=== PATIENT | male | born 1975 | race Caucasian/White ===

== ENCOUNTER → 2018-10-02 | Outpatient (CLI) | payer MEDICARE, OTHER ==
[2018-10-02 15:32] VITALS: PULSE 80; RESP 16; TEMP 98
[2018-10-02 16:03] VITALS: BP 134/89
== END | disposition home or self-care (01) ==
LOC: PROCWHC3 14:34
PROVIDERS: ATTEND Family Medicine
DX: D45 Polycythemia vera (principal); Z94.0 Kidney transplant status
CPT/HCPCS: 99195

== ENCOUNTER → 2018-11-14 | Outpatient (CLI) | payer MEDICARE, OTHER ==
--- NOTE | 2018-11-14 18:16 | CT ---
EXAMINATION TYPE: CT brain wo con DATE OF EXAM: 11/14/2018 COMPARISON: None INDICATION: Dizziness and unsteady gait. DLP: 1183 mGycm, Automated exposure control for dose reduction was used. CONTRAST: None CT of the brain is performed utilizing 3 mm thick sections through the posterior fossa and 3 mm thick sections through the remaining calvarium. Study is performed within 24 hours of arrival to the hosp [facility]. No abnormal hyperdensity is present to suggest an acute intracranial hemorrhage. No mass lesion is evident. No acute infarcts are evident. Ventricles and sulci are appropriate for the patient age. Paranasal sinuses and mastoid air cells within the [id number] are clear. IMPRESSIONS: 1. Normal CT Brain
--- NOTE | 2018-11-14 18:18 | CT ---
EXAMINATION TYPE: CT lumbar spine wo con DATE OF EXAM: 11/14/2018 COMPARISON: None HISTORY: Dizziness, unsteady gait and low back pain. CT DLP: 992 mGycm CONTRAST: None TECHNIQUE: CT of the lumbar spine is performed on a spiral scan at 3 mm thick sections. Reconstructed images are performed in the coronal and sagittal planes. FINDINGS: T12-L1: No focal disc herniation or significant disc bulge is evident. No spinal canal stenosis or neural foraminal stenosis is present. L1-L2: No focal disc herniation or significant disc bulge is evident. No spinal canal stenosis or n eural foraminal stenosis is present L2-L3: No focal disc herniation or significant disc bulge is evident. No spinal canal stenosis or n eural foraminal stenosis is present L3-L4: No focal disc herniation or significant disc bulge is evident. No spinal canal stenosis or n eural foraminal stenosis is present L4-L5: Mild disc bulge has anterior thecal sac contact. No AP spinal canal stenosis is evident. Neura l foramen are patent. L5-S1: Mild disc bulge is present with exiting nerve root contact. No contact with the thecal sac is evident. No cysts or canal stenosis or neural foraminal stenosis is present. Vertebral alignment appears normal. Disc heights are preserved. Vertebral body heights are preserved. Alignment IMPRESSION: Mild disc bulging L4-5 L5-S1 of questionable clinical significance.
== END | disposition home or self-care (01) ==
LOC: RADCTMAIN 16:28
PROVIDERS: ATTEND Family Medicine
DX: M54.5 Low back pain (principal); R55 Syncope and collapse; R26.81 Unsteadiness on feet; Z88.8 Allergy status to other drugs, medicaments and biological substances
CPT/HCPCS: 70450; 72131

== ENCOUNTER 2019-03-16 22:34 | Emergency (ER) | payer MEDICARE, OTHER ==
[2019-03-16 22:56] VITALS: BP 117/82; PULSE 92; RESP 18; TEMP 99.1
--- NOTE | 2019-03-17 00:20 | XR ---
EXAM: XR Chest, 2 Views CLINICAL HISTORY: ITS.REASON XR Reason: abdominal pain TECHNIQUE: Frontal and lateral views of the chest. COMPARISON: No relevant prior studies available. FINDINGS: Lungs: Unremarkable. No consolidation. Pleural space: Unremarkable. No pneumothorax. Heart: No suspicious enlargement. Mediastinum: Unremarkable. Bones/joints: No acute fracture. IMPRESSION: No acute findings.
[2019-03-17 00:45] LABS: Basophils # (A) 0.1 k/uL (0-0.2); Basophils % (A) 1 %; Eosinophils # (A) 0.1 k/uL (0-0.7); Eosinophils % (A) 2 %; HCT 43.9 % (39.0-53.0); HGB 14.2 gm/dL (13.0-17.5); Lymphocytes # (A) 1.4 k/uL (1.0-4.8); Lymphocytes % (A) 16 %; MCH 28.9 pg (25.0-35.0); MCHC 32.4 g/dL (31.0-37.0); MCV 89.2 fL (80.0-100.0); Mean Platelet Volume 7.7; Monocytes # (A) 0.8 k/uL (0-1.0); Monocytes % (A) 9 %; Neutrophils # (A) 6.1 k/uL (1.3-7.7); Neutrophils % (A) 71 %; Platelet Count 209 k/uL (150-450); RBC 4.92 m/uL (4.30-5.90); RDW 14.1 % (11.5-15.5); WBC 8.6 k/uL (3.8-10.6)
[2019-03-17 00:53] LABS: ALT 33 U/L (21-72); AST 74 U/L (17-59); Albumin 3.7 g/dL (3.5-5.0); Alkaline Phosphatase 105 U/L (38-126); Anion Gap 8 mmol/L; Blood Urea Nitrogen 14 mg/dL (9-20); Calcium 9.8 mg/dL (8.4-10.2); Carbon Dioxide 24 mmol/L (22-30); Chloride 103 mmol/L (98-107); Glucose 312 mg/dL (74-99); Lipase 58 U/L (23-300); Potassium 4.3 mmol/L (3.5-5.1); Sodium 135 mmol/L (137-145); Total Bilirubin 0.7 mg/dL (0.2-1.3); Total Protein 6.6 g/dL (6.3-8.2)
[2019-03-17 00:58] LABS: Partial Thromboplastin Time 25.6 sec (22.0-30.0); Prothrombin Time 10.3 sec (9.0-12.0)
[2019-03-17 01:25] LABS: Appearance,Urine Clear (Clear); Bilirubin,Urine Negative (Negative); Blood,Urine Negative (Negative); Color,Urine Light Yellow; Glucose,Urine (UA) 4+ (Negative); Ketones,Urine 1+ (Negative); Leukocyte Esterase,Urine Negative (Negative); Nitrite,Urine Negative (Negative); Protein,Urine Negative (Negative); Specific Gravity,Urine 1.023 (1.001-1.035); Urobilinogen,Urine <2.0 mg/dL (<2.0)
[2019-03-17] MEDS ORDERED: INSULIN ASPART (NovoLOG) 100 UNIT/ML VIAL SQ ONE (01:30)
[2019-03-17 02:04] LABS: Glucose,Whole Blood 245 mg/dL (75-99)
--- NOTE | 2019-03-17 02:14 | ED ---
General Adult HPI - General Source: patient, RN notes reviewed, old records reviewed Mode of arrival: ambulatory Limitations: no limitations <Sami Morton - Last Filed: 03/17/19 03:26> <Gardenia Go - Last Filed: 03/17/19 05:36> - General Chief complaint: Fever Stated complaint: Fever Time Seen by Provider: 03/16/19 23:42 - History of Present Illness Initial comments: 43-year-old male patient past medical history of type 1 DM, s/p kidney transplant transplant approximately 7 years ago presents to ED for waxing waning fever 3 days as well as cough. Patient has had some mild nausea as well as 1-2 bouts of diarrhea. Patient denies any chest pain shortness of breath abdominal pain. Patient was placed on azithromycin by primary care provider for pneumonia. Patient denies any other complaints at this time. Patient states that he is seeking evaluation primarily for waxing and waning fevers at home. Systemic: Pt denies fatigue, myalgia, fever/chills, rash. Pt denies weakness, night sweats, weight loss. Neuro: Pt denies headache, visual disturbances, syncope or pre-syncope. HEENT: Pt denies ocular discharge or irritation, otalgia, rhinorrhea, pharyngitis or notable lymphadenopathy. Cardiopulmonary: Pt denies chest pain, SOB, heart palpitations, dyspnea on exertion. Abdominal/GI: Pt denies abdominal pain. : Pt denies dysuria, burning w/ urination, frequency/urgency. Denies new onset urinary or bowel incontinence. MSK: Pt denies myalgia, loss of strength or function in extremities. Neuro: Pt denies new onset weakness, paresthesias. (Sami Morton) - Related Data Home Medications Medication Instructions Recorded Confirmed Insulin Aspart [NovoLOG Flexpen] 75 units SQ DAILY 10/02/18 02/02/19 Insulin Detemir (Levemir) [Levemir] 51 unit SQ DAILY 10/02/18 02/02/19 Mycophenolate Mofetil [Cellcept] 1,000 mg PO BID 10/02/18 02/02/19 Tacrolimus [Prograf] 3 mg PO DAILY 10/02/18 02/02/19 cloNIDine HCL 0.2 mg PO BID 10/02/18 02/02/19 amLODIPine BESYLATE 5 mg PO DAILY 02/02/19 02/02/19 hydrALAZINE HCL 25 mg PO BID 02/02/19 02/02/19 Allergies Allergy/AdvReac Type Severity Reaction Status Date / Time famciclovir [From Famvir] Allergy Hallucinati Verified 03/16/19 22:56 ons Review of Systems ROS Other: All systems not noted in ROS Statement are negative. <SeleneSami Meera - Last Filed: 03/17/19 03:26> ROS Other: All systems not noted in ROS Statement are negative. <Gardenia Go - Last Filed: 03/17/19 05:36> ROS Statement: Those systems with pertinent positive or pertinent negative responses have been documented in the HPI. Past Medical History Past Medical History: Blood Disorder, Diabetes Mellitus, Hypertension, Renal Disease Additional Past Medical History / Comment(s): POLYCTHEMIA WITH THERPEUTIC PHLEBOTOMIES. KIDNEY DISEASE. History of Any Multi-Drug Resistant Organisms: None Reported Additional Past Surgical History / Comment(s): EYES SURGERIES. KIDNEY TRANSPLANT 2011. PARATHYROID "SHAVING". Past Anesthesia/Blood Transfusion Reactions: No Reported Reaction Past Psychological History: No Psychological Hx Reported Smoking Status: Former smoker <Adarsh Mortonpanchito Estes - Last Filed: 03/17/19 03:26> General Exam Limitations: no limitations <Sami Morton Meera - Last Filed: 03/17/19 03:26> - General Exam Comments Initial Comments: Constitutional: NAD, AOX3, Pt has pleasant affect. HEENT: NC/AT, trachea midline, neck supple, no lymphadenopathy. Posterior pharynx non erythematous, without exudates. External ears appear normal, without discharge. Mucous membranes moist. Eyes PERRLA, EOM intact. There is no scleral icterus. No pallor noted. Cardiopulmonary: RRR, no murmurs, rubs or gallops, no JVD noted. Lungs CTAB in anterior and posterior wright. No peripheral edema. Abdominal exam: Abdomen soft and non-distended. Abdomen non-tender to palpation in all 4 quadrants. Bowel sounds active in LLQ. No hepatosplenomegaly. No ecchymosis Neuro: CN II-XII grossly intact. No nuchal rigidity. MSK: No posterior calf tenderness bilaterally, homans sign negative bilaterally. Posterior tibialis and radial pulse +2 bilaterally. Sensation intact in upper and lower extremities. Full active ROM in upper and lower extremities, 5/5 stregnth. (Sami Morton) Course Vital Signs 03/16/19 22:51 Temperature 99.1 F Pulse Rate 92 Respiratory 18 Rate Blood Pressure 117/82 O2 Sat by Pulse 98 Oximetry Medical Decision Making - Lab Data Result diagrams: 03/17/19 00:30 03/17/19 00:30 <Sami Morton - Last Filed: 03/17/19 03:26> - Lab Data Result diagrams: 03/17/19 00:30 03/17/19 00:30 <Gardenia Go - Last Filed: 03/17/19 05:36> - Medical Decision Making 43-year-old male patient past medical history of type 1 DM, s/p kidney transplant transplant approximately 7 years ago presents to ED for waxing waning fever 3 days as well as cough. Patient has had some mild nausea as well as 1-2 bouts of diarrhea. Patient denies any chest pain shortness of breath abdominal pain. Patient was placed on azithromycin by primary care provider for pneumonia. Patient denies any other complaints at this time. Patient states that he is seeking evaluation primarily for waxing and waning fevers at home. Patient fell signs stable, afebrile. Physical exam didn't display acute p athology. Laboratory investigations revealed non-impressive CBC, CMP, UA. Influenza negative. Chest x-ray revealed no acute process. Patient was offered admission for observation although no signs of active infection were detected. Blood cultures were obtained. Patient declined, patient will be discharged. Patient will close outpatient follow-up with primary care provider tomorrow. Patient return to ER immediately if symptoms develop or if patient worsens. Case discussed with Dr. Go. (Sami Morton) I was available for consultation in the emergency department. The history and physical exam were done by the midlevel provider. I was consulted for this patient's care. I reviewed the case with the midlevel provider and based on their presentation of the patient, I agree with the assessment, medical decision making and plan of care as documented. Chart was dictated using [employer] dictation software. Attempts were made to correct any dictation errors however some typographical errors may persist. (Gardenia Go) - Lab Data Lab Results 03/17/19 03/17/19 03/17/19 Range/Units 00:30 00:30 00:30 WBC 8.6 (3.8-10.6) k/uL RBC 4.92 (4.30-5.90) m/uL Hgb 14.2 (13.0-17.5) gm/dL Hct 43.9 (39.0-53.0) % MCV 89.2 (80.0-100.0) fL MCH 28.9 (25.0-35.0) pg MCHC 32.4 (31.0-37.0) g/dL RDW 14.1 (11.5-15.5) % Plt Count 209 (150-450) k/uL Neutrophils % 71 % Lymphocytes % 16 % Monocytes % 9 % Eosinophils % 2 % Basophils % 1 % Neutrophils # 6.1 (1.3-7.7) k/uL Lymphocytes # 1.4 (1.0-4.8) k/uL Monocytes # 0.8 (0-1.0) k/uL Eosinophils # 0.1 (0-0.7) k/uL Basophils # 0.1 (0-0.2) k/uL PT (9.0-12.0) sec INR (<1.2) APTT (22.0-30.0) sec Sodium 135 L (137-145) mmol/L Potassium 4.3 (3.5-5.1) mmol/L Chloride 103 (98-107) mmol/L Carbon Dioxide 24 (22-30) mmol/L Anion Gap 8 mmol/L BUN 14 (9-20) mg/dL Creatinine 1.10 (0.66-1.25) mg/dL Est GFR (CKD-EPI)AfAm >90 (>60 ml/min/1.73 sqM) Est GFR (CKD-EPI)NonAf 81 (>60 ml/min/1.73 sqM) Glucose 312 H (74-99) mg/dL POC Glucose (mg/dL) (75-99) mg/dL POC Glu Supervisor Of Way ID Plasma Lactic Acid Preston 1.9 (0.7-2.0) mmol/L Calcium 9.8 (8.4-10.2) mg/dL Total Bilirubin 0.7 (0.2-1.3) mg/dL AST 74 H (17-59) U/L ALT 33 (21-72) U/L Alkaline Phosphatase 105 (38-126) U/L Total Protein 6.6 (6.3-8.2) g/dL Albumin 3.7 (3.5-5.0) g/dL Lipase 58 (23-300) U/L Urine Color Urine Appearance (Clear) Urine pH (5.0-8.0) Ur Specific [place] (1.001-1.035) Urine Protein (Negative) Urine Glucose (UA) (Negative) Urine Ketones (Negative) Urine Blood (Negative) Urine Nitrite (Negative) Urine Bilirubin (Negative) Urine Urobilinogen (<2.0) mg/dL Ur Leukocyte Esterase (Negative) Influenza Type A RNA (Not Detectd) Influenza Type B (PCR) (Not Detectd) 03/17/19 03/17/19 03/17/19 Range/Units 00:30 00:30 01:20 WBC (3.8-10.6) k/uL RBC (4.30-5.90) m/uL Hgb (13.0-17.5) gm/dL Hct (39.0-53.0) % MCV (80.0-100.0) fL MCH (25.0-35.0) pg MCHC (31.0-37.0) g/dL RDW (11.5-15.5) % Plt Count (150-450) k/uL Neutrophils % % Lymphocytes % % Monocytes % % Eosinophils % % Basophils % % Neutrophils # (1.3-7.7) k/uL Lymphocytes # (1.0-4.8) k/uL Monocytes # (0-1.0) k/uL Eosinophils # (0-0.7) k/uL Basophils # (0-0.2) k/uL PT 10.3 (9.0-12.0) sec INR 1.0 (<1.2) APTT 25.6 (22.0-30.0) sec Sodium (137-145) mmol/L Potassium (3.5-5.1) mmol/L Chloride (98-107) mmol/L Carbon Dioxide (22-30) mmol/L Anion Gap mmol/L BUN (9-20) mg/dL Creatinine (0.66-1.25) mg/dL Est GFR (CKD-EPI)AfAm (>60 ml/min/1.73 sqM) Est GFR (CKD-EPI)NonAf (>60 ml/min/1.73 sqM) Glucose (74-99) mg/dL POC Glucose (mg/dL) (75-99) mg/dL POC Glu Supervisor Of Way ID Plasma Lactic Acid Preston (0.7-2.0) mmol/L Calcium (8.4-10.2) mg/dL Total Bilirubin (0.2-1.3) mg/dL AST (17-59) U/L ALT (21-72) U/L Alkaline Phosphatase (38-126) U/L Total Protein (6.3-8.2) g/dL Albumin (3.5-5.0) g/dL Lipase (23-300) U/L Urine Color Light Yellow Urine Appearance Clear (Clear) Urine pH 6.0 (5.0-8.0) Ur Specific [place] 1.023 (1.001-1.035) Urine Protein Negative (Negative) Urine Glucose (UA) 4+ H (Negative) Urine Ketones 1+ H (Negative) Urine Blood Negative (Negative) Urine Nitrite Negative (Negative) Urine Bilirubin Negative (Negative) Urine Urobilinogen <2.0 (<2.0) mg/dL Ur Leukocyte Esterase Negative (Negative) Influenza Type A RNA Not Detected (Not Detectd) Influenza Type B (PCR) Not Detected (Not Detectd) 03/17/19 Range/Units 02:02 WBC (3.8-10.6) k/uL RBC (4.30-5.90) m/uL Hgb (13.0-17.5) gm/dL Hct (39.0-53.0) % MCV (80.0-100.0) fL MCH (25.0-35.0) pg MCHC (31.0-37.0) g/dL RDW (11.5-15.5) % Plt Count (150-450) k/uL Neutrophils % % Lymphocytes % % Monocytes % % Eosinophils % % Basophils % % Neutrophils # (1.3-7.7) k/uL Lymphocytes # (1.0-4.8) k/uL Monocytes # (0-1.0) k/uL Eosinophils # (0-0.7) k/uL Basophils # (0-0.2) k/uL PT (9.0-12.0) sec INR (<1.2) APTT (22.0-30.0) sec Sodium (137-145) mmol/L Potassium (3.5-5.1) mmol/L Chloride (98-107) mmol/L Carbon Dioxide (22-30) mmol/L Anion Gap mmol/L BUN (9-20) mg/dL Creatinine (0.66-1.25) mg/dL Est GFR (CKD-EPI)AfAm (>60 ml/min/1.73 sqM) Est GFR (CKD-EPI)NonAf (>60 ml/min/1.73 sqM) Glucose (74-99) mg/dL POC Glucose (mg/dL) 245 H (75-99) mg/dL POC Glu Supervisor Of Way ID Rashawn Nickerson Plasma Lactic Acid Preston (0.7-2.0) mmol/L Calcium (8.4-10.2) mg/dL Total Bilirubin (0.2-1.3) mg/dL AST (17-59) U/L ALT (21-72) U/L Alkaline Phosphatase (38-126) U/L Total Protein (6.3-8.2) g/dL Albumin (3.5-5.0) g/dL Lipase (23-300) U/L Urine Color Urine Appearance (Clear) Urine pH (5.0-8.0) Ur Specific [place] (1.001-1.035) Urine Protein (Negative) Urine Glucose (UA) (Negative) Urine Ketones (Negative) Urine Blood (Negative) Urine Nitrite (Negative) Urine Bilirubin (Negative) Urine Urobilinogen (<2.0) mg/dL Ur Leukocyte Esterase (Negative) Influenza Type A RNA (Not Detectd) Influenza Type B (PCR) (Not Detectd) Disposition Is patient prescribed a controlled substance at d/c from ED?: No <Sami Morton - Last Filed: 03/17/19 03:26> <Gardenia Go - Last Filed: 03/17/19 05:36> Clinical Impression: Viral syndrome Disposition: HOME SELF-CARE Condition: Stable Instructions (If sedation given, give patient instructions): Viral Syndrome (ED) Additional Instructions: Patient to adhere to previously discussed treatment plan and will take medication(s) as directed. Patient to follow up with PCP in 1-2 days. Patient to return to ED if symptoms do not improve. Follow-up with primary care provider tomorrow. Return to ER if condition worsens. Referrals: Bhanu Carranza Jr, [Primary Care Provider] - 1-2 days
== END 2019-03-17 02:20 | disposition home or self-care (01) ==
LOC: EC 22:34
DX: B34.9 Viral infection, unspecified (principal); E10.9 Type 1 diabetes mellitus without complications; I10 Essential (primary) hypertension; Z87.891 Personal history of nicotine dependence; Z79.4 Long term (current) use of insulin; Z79.899 Other long term (current) drug therapy; Z88.3 Allergy status to other anti-infective agents; Z94.0 Kidney transplant status; Z53.8 Procedure and treatment not carried out for other reasons
CPT/HCPCS: 36415; 71046; 80053; 81003; 83605; 83690; 85025; 85610; 85730; 87040; 87502; 99284

== ENCOUNTER 2020-03-22 13:01 | Inpatient (IN) | payer MEDICARE, OTHER ==
[2020-03-22] MEDS ORDERED: METOCLOPRAMIDE 5 MG/ML 2 ML VIAL IM STA (13:16)
[2020-03-22 13:24] LABS: Glucose,Whole Blood 505 mg/dL (75-99)
[2020-03-22] MEDS ORDERED: PANTOPRAZOLE 40 MG/10 ML VIAL IVP STA ×2 (13:26→13:49)
[2020-03-22] MEDS ORDERED: SODIUM CHLORIDE 0.9% 1,000 ML IV ONE (13:26)
--- NOTE | 2020-03-22 13:30 | ED ---
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 patient states that he has had elevated glucose, nausea, vomiting. Patient states this began this morning. Patient states he was only had chest pain since vomiting, denies any prior to onset of symptoms of vomiting. Very mild SOB-per patient. Patient states vomit is dark brown. Denies rectal bleeding or dark stools. Patient states that he underwent dialysis yesterday however normally has little urine output. Patient denies any fever or cough. Patient denies any abdominal pain. Patient denies jaw, back or arm pain. Admit to generalized weakness. Patient denies any additional complaints. Upon arrival patient actively vomiting dark brown vomit. (Shayla Shetty) - Related Data Home Medications Medication Instructions Recorded Confirmed Insulin Aspart [NovoLOG Flexpen] 12 units SQ AC-TID 10/02/18 03/22/20 Insulin Detemir (Levemir) [Levemir] 20 unit SQ HS 10/02/18 03/22/20 amLODIPine BESYLATE 5 mg PO DAILY 02/02/19 03/22/20 hydrALAZINE HCL 25 mg PO TID 02/02/19 03/22/20 Metoprolol Succinate [Toprol XL] 25 mg PO DAILY 03/22/20 03/22/20 cloNIDine HCL [Catapres] 0.6 mg PO TID 03/22/20 03/22/20 Allergies Allergy/AdvReac Type Severity Reaction Status Date / Time famciclovir [From Famvir] Allergy Hallucinati Verified 03/22/20 13:11 ons Review of Systems ROS Other: All systems not noted in ROS Statement are negative. <Doug Tomlin - Last Filed: 05/16/20 15:58> ROS Other: All systems not noted in ROS Statement are negative. <Shayla Shetty - Last Filed: 03/22/20 16:17> ROS Statement: Those systems with pertinent positive or pertinent negative responses have been documented in the HPI. Past Medical History Past Medical History: Blood Disorder, Diabetes Mellitus, Hypertension, Renal Disease Additional Past Medical History / Comment(s): POLYCTHEMIA WITH THERPEUTIC PHLEB OTOMIES. KIDNEY DISEASE. dialysis History of Any Multi-Drug Resistant Organisms: None Reported Additional Past Surgical History / Comment(s): EYES SURGERIES. KIDNEY TRANSPLANT 2012. PARATHYROID "SHAVING". open heart surgey Past Anesthesia/Blood Transfusion Reactions: No Reported Reaction Past Psychological History: No Psychological Hx Reported Smoking Status: Current every day smoker Past Alcohol Use History: None Reported, Occasional Past Drug Use History: None Reported <Shayla Shetty - Last Filed: 03/22/20 16:17> General Exam Limitations: no limitations <Shayla Shetty - Last Filed: 03/22/20 16:17> - General Exam Comments Initial Comments: General: The patient is awake and alert, actively vomiting Eye: +3 mm pupils are equal, round and reactive to light, extra-ocular movements are intact. No nystagmus. There is normal conjunctiva bilaterally. No signs of icterus. Ears, nose, mouth and throat: There are moist mucous membranes and no oral lesions. Neck: The neck is supple, there is no tenderness or JVD. Cardiovascular: There is a regular rate and rhythm. No murmur, rub or gallop is appreciated. Respiratory: Mild diminished lung sounds. respirations are non-labored, breath sounds are equal. No wheezes, stridor, rhonchi. Gastrointestinal: Soft, non-distended, non-tender abdomen without masses or organomegaly noted. There is no rebound or guarding present. Musculoskeletal: Normal ROM, no tenderness. Strength 5/5. Sensation intact. Radial pulses equal bilaterally 2+. Neurological: A&O x 3. CN II-XII intact grossly, There are no obvious motor or sensory deficits. Coordination appears grossly intact. Speech is normal. Skin: Skin is warm and dry and no rashes or lesions are noted. Mild LE swelling, no pitting edema. Psychiatric: Cooperative, appropriate mood & affect, normal judgment. (Shayla Shetty) Course <Doug Tomlin - Last Filed: 03/22/20 15:58> Vital Signs 03/22/20 03/22/20 03/22/20 13:05 13:46 14:54 Temperature 98.0 F Pulse Rate 113 H 115 H 112 H Respiratory 40 H 38 H 40 H Rate Blood Pressure 144/76 118/63 129/65 O2 Sat by Pulse 95 100 99 Oximetry 03/22/20 16:00 Temperature 98.6 F Pulse Rate 112 H Respiratory 28 H Rate Blood Pressure 137/66 O2 Sat by Pulse 98 Oximetry - Reevaluation(s) Reevaluation #1: 03/22/20 15:58 PA supervision: I personally evaluate this patient in case the patient will be admitted with DKA as well as elevated lactic acid which is likely secondary to the DKA is a slight elevation of troponin. He did have chest pain after vomiting. He also had some emesis after vomiting. His last dialysis was yesterday. I did discuss case with Dr. Mcguire as well as Dr. Aguilar. Patient will be admitted consultation to nephrology. (Doug Tomlin) Medical Decision Making - Lab Data Result diagrams: 03/22/20 14:22 03/22/20 14:22 <Doug Tomlin - Last Filed: 03/22/20 15:58> - Lab Data Result diagrams: 03/22/20 14:22 03/22/20 14:22 <Shayla Shetty - Last Filed: 03/22/20 16:17> - Medical Decision Making 44-year-old male presenting today for chief complaint of vomiting nausea. Patient is a diabetic-type 1. Patient is found to have significant anion gap elevation acetone positive with suspected diabetic ketoacidosis. Lactic acid also elevated as well as creatinine which is consistent with patient's history of kidney failure, last dialysis yesterday. Mild electrolytes derangements. Patient states he had some chest pain while vomiting, however subsided after reglan. Patient's vomited appear coffee ground in appearance aspirin was held with concern for upper GI bleed as i suspect vomiting as cause of CP as complete resolved with control of symptom. Patient was given 80 mg of Protonix. Noted on CXR was a right sided pleural effusion that appears loculated, cannot r/o infectious cause, patient initiated on broad spectrum antibiotics. Patient given 1500ml of fluids-less aggressive than preferred given patient current condition however at high risk with recent surgical procedure and no urine output for fluid overload--will hydrate at tolerated. Patient troponin elevated, could be related to decreased excretion will trend. Patient has serious co-morbidities and current medication condition and will be admitted to the ICU. 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 (Shayla Shetty) - Lab Data Lab Results 03/22/20 03/22/20 03/22/20 Range/Units 13:22 13:39 14:22 WBC 9.7 (3.8-10.6) k/uL RBC 3.73 L (4.30-5.90) m/uL Hgb 11.0 L (13.0-17.5) gm/dL Hct 36.9 L (39.0-53.0) % MCV 98.9 (80.0-100.0) fL MCH 29.5 (25.0-35.0) pg MCHC 29.8 L (31.0-37.0) g/dL RDW 15.2 (11.5-15.5) % Plt Count 267 (150-450) k/uL Neutrophils % 86 % Lymphocytes % 6 % Monocytes % 7 % Eosinophils % 0 % Basophils % 0 % Neutrophils # 8.4 H (1.3-7.7) k/uL Lymphocytes # 0.6 L (1.0-4.8) k/uL Monocytes # 0.6 (0-1.0) k/uL Eosinophils # 0.0 (0-0.7) k/uL Basophils # 0.0 (0-0.2) k/uL Hypochromasia Marked Macrocytosis Slight PT (9.0-12.0) sec INR (<1.2) APTT (22.0-30.0) sec Sodium (137-145) mmol/L Potassium (3.5-5.1) mmol/L Chloride (98-107) mmol/L Carbon Dioxide (22-30) mmol/L Anion Gap mmol/L BUN (9-20) mg/dL Creatinine (0.66-1.25) mg/dL Est GFR (CKD-EPI)AfAm (>60 ml/min/1.73 sqM) Est GFR (CKD-EPI)NonAf (>60 ml/min/1.73 sqM) Glucose (74-99) mg/dL POC Glucose (mg/dL) 505 H (75-99) mg/dL POC Glu Car Sales Consultant ID Oneyda Neumann Plasma Lactic Acid Preston (0.7-2.0) mmol/L Calcium (8.4-10.2) mg/dL Magnesium (1.6-2.3) mg/dL Total Bilirubin (0.2-1.3) mg/dL AST (17-59) U/L ALT (4-49) U/L Alkaline Phosphatase (38-126) U/L Ammonia (<30) umol/L Troponin I (0.000-0.034) ng/mL Total Protein (6.3-8.2) g/dL Albumin (3.5-5.0) g/dL Amylase (30-110) U/L Lipase (23-300) U/L TSH (0.465-4.680) mIU/L Free T4 (0.78-2.19) ng/dL Gastric Occult Blood Positive (Negative) Acetone, Qual (Negative) 03/22/20 03/22/20 03/22/20 Range/Units 14:22 14:22 14:22 WBC (3.8-10.6) k/uL RBC (4.30-5.90) m/uL Hgb (13.0-17.5) gm/dL Hct (39.0-53.0) % MCV (80.0-100.0) fL MCH (25.0-35.0) pg MCHC (31.0-37.0) g/dL RDW (11.5-15.5) % Plt Count (150-450) k/uL Neutrophils % % Lymphocytes % % Monocytes % % Eosinophils % % Basophils % % Neutrophils # (1.3-7.7) k/uL Lymphocytes # (1.0-4.8) k/uL Monocytes # (0-1.0) k/uL Eosinophils # (0-0.7) k/uL Basophils # (0-0.2) k/uL Hypochromasia Macrocytosis PT 12.1 H (9.0-12.0) sec INR 1.2 H (<1.2) APTT 24.8 (22.0-30.0) sec Sodium 131 L (137-145) mmol/L Potassium 4.8 (3.5-5.1) mmol/L Chloride 91 L (98-107) mmol/L Carbon Dioxide 12 L (22-30) mmol/L Anion Gap 28 mmol/L BUN 20 (9-20) mg/dL Creatinine 5.75 H (0.66-1.25) mg/dL Est GFR (CKD-EPI)AfAm 13 (>60 ml/min/1.73 sqM) Est GFR (CKD-EPI)NonAf 11 (>60 ml/min/1.73 sqM) Glucose 579 H* (74-99) mg/dL POC Glucose (mg/dL) (75-99) mg/dL POC Glu Car Sales Consultant ID Plasma Lactic Acid Preston 5.8 H* (0.7-2.0) mmol/L Calcium 8.4 (8.4-10.2) mg/dL Magnesium 1.8 (1.6-2.3) mg/dL Total Bilirubin 0.6 (0.2-1.3) mg/dL AST 70 H (17-59) U/L ALT 22 (4-49) U/L Alkaline Phosphatase 124 (38-126) U/L Ammonia <9 (<30) umol/L Troponin I (0.000-0.034) ng/mL Total Protein 6.7 (6.3-8.2) g/dL Albumin 3.6 (3.5-5.0) g/dL Amylase 88 (30-110) U/L Lipase 140 (23-300) U/L TSH 6.860 H (0.465-4.680) mIU/L Free T4 2.56 H (0.78-2.19) ng/dL Gastric Occult Blood (Negative) Acetone, Qual Positive (Negative) 03/22/20 03/22/20 Range/Units 14:22 15:50 WBC (3.8-10.6) k/uL RBC (4.30-5.90) m/uL Hgb (13.0-17.5) gm/dL Hct (39.0-53.0) % MCV (80.0-100.0) fL MCH (25.0-35.0) pg MCHC (31.0-37.0) g/dL RDW (11.5-15.5) % Plt Count (150-450) k/uL Neutrophils % % Lymphocytes % % Monocytes % % Eosinophils % % Basophils % % Neutrophils # (1.3-7.7) k/uL Lymphocytes # (1.0-4.8) k/uL Monocytes # (0-1.0) k/uL Eosinophils # (0-0.7) k/uL Basophils # (0-0.2) k/uL Hypochromasia Macrocytosis PT (9.0-12.0) sec INR (<1.2) APTT (22.0-30.0) sec Sodium (137-145) mmol/L Potassium (3.5-5.1) mmol/L Chloride (98-107) mmol/L Carbon Dioxide (22-30) mmol/L Anion Gap mmol/L BUN (9-20) mg/dL Creatinine (0.66-1.25) mg/dL Est GFR (CKD-EPI)AfAm (>60 ml/min/1.73 sqM) Est GFR (CKD-EPI)NonAf (>60 ml/min/1.73 sqM) Glucose (74-99) mg/dL POC Glucose (mg/dL) >600 H (75-99) mg/dL POC Glu Car Sales Consultant ID Bowling, Mayela Plasma Lactic Acid Preston (0.7-2.0) mmol/L Calcium (8.4-10.2) mg/dL Magnesium (1.6-2.3) mg/dL Total Bilirubin (0.2-1.3) mg/dL AST (17-59) U/L ALT (4-49) U/L Alkaline Phosphatase (38-126) U/L Ammonia (<30) umol/L Troponin I 0.077 H* (0.000-0.034) ng/mL Total Protein (6.3-8.2) g/dL Albumin (3.5-5.0) g/dL Amylase (30-110) U/L Lipase (23-300) U/L TSH (0.465-4.680) mIU/L Free T4 (0.78-2.19) ng/dL Gastric Occult Blood (Negative) Acetone, Qual (Negative) Disposition <Doug Tomlin - Last Filed: 03/22/20 15:58> Is patient prescribed a controlled substance at d/c from ED?: No Time of Disposition: 15:56 Decision to Admit Reason: Admit from EC Decision Date: 03/22/20 Decision Time: 15:56 <Shayla Shetty - Last Filed: 03/22/20 16:17> Clinical Impression: DKA (diabetic ketoacidoses), Renal failure, chronic, Bloody vomitus, Nausea, Vomiting, Lactic acidosis, Pleural effusion, right, Leukocytosis, Elevated serum creatinine Disposition: ADMITTED IP TO THIS HOSP Condition: Poor Referrals: Bhanu Carranza Jr, [Primary Care Provider] - 1-2 days
--- NOTE | 2020-03-22 14:16 | XR ---
EXAMINATION TYPE: XR chest 2V DATE OF EXAM: 03/22/2020 HISTORY: Chest Pain. REFERENCE: Previous study dated 03/17/2019. FINDINGS: There is a large-bore, double-lumen catheter in place via a left internal jugular approach. Its tip is in the superior vena cava. There is been a midline sternotomy. There is a moderate pleural effusion on the right. This appears loculated. The heart is mildly promin ent. There is vascular congestion and mild edema. IMPRESSION: 1. MILD CARDIOMEGALY. 2. MODERATE RIGHT PLEURAL EFFUSION WHICH MAY BE LOCULATED. 3. MILD CHANGES OF CONGESTIVE HEART FAILURE.
[2020-03-22] MEDS ORDERED: PIPERACILLIN-TAZOBACTAM 3.375 GM in SODIUM CHLORIDE 0.9% 100 ML IVPB STA (14:26)
[2020-03-22] MEDS ORDERED: LORazepam 2 MG/ML INJ IV STA (14:49)
[2020-03-22 14:51] LABS: Basophils % (A) 0 %; Eosinophils % (A) 0 %; HCT 36.9 % (39.0-53.0); Hypochromasia Marked; Lymphocytes # (A) 0.6 k/uL (1.0-4.8); Lymphocytes % (A) 6 %; MCH 29.5 pg (25.0-35.0); MCHC 29.8 g/dL (31.0-37.0); MCV 98.9 fL (80.0-100.0); Macrocytosis Slight; Mean Platelet Volume 8.7; Monocytes # (A) 0.6 k/uL (0-1.0); Monocytes % (A) 7 %; Neutrophils # (A) 8.4 k/uL (1.3-7.7); Neutrophils % (A) 86 %; Platelet Count 267 k/uL (150-450); RBC 3.73 m/uL (4.30-5.90); RDW 15.2 % (11.5-15.5); WBC 9.7 k/uL (3.8-10.6)
[2020-03-22] MEDS ORDERED: SODIUM CHLORIDE 0.9% 500 ML 500 ML IV ONE (14:58)
[2020-03-22 15:00] LABS: INR 1.2 (<1.2); Partial Thromboplastin Time 24.8 sec (22.0-30.0); Prothrombin Time 12.1 sec (9.0-12.0)
[2020-03-22 15:01] LABS: AST 70 U/L (17-59); African American GFR (CKD) 13 (>60 ml/min/1.73 sqM); Albumin 3.6 g/dL (3.5-5.0); Alkaline Phosphatase 124 U/L (38-126); Amylase 88 U/L (30-110); Anion Gap 28 mmol/L; Blood Urea Nitrogen 20 mg/dL (9-20); Calcium 8.4 mg/dL (8.4-10.2); Carbon Dioxide 12 mmol/L (22-30); Chloride 91 mmol/L (98-107); Magnesium 1.8 mg/dL (1.6-2.3); Non-African American GFR(CKD) 11 (>60 ml/min/1.73 sqM); Potassium 4.8 mmol/L (3.5-5.1); Sodium 131 mmol/L (137-145); Total Bilirubin 0.6 mg/dL (0.2-1.3); Total Protein 6.7 g/dL (6.3-8.2)
[2020-03-22 15:08] LABS: ALT 22 U/L (4-49)
[2020-03-22 15:12] LABS: Lactic Acid, Venous 5.8 mmol/L (0.7-2.0)
[2020-03-22 15:13] LABS: Glucose 579 mg/dL (74-99)
[2020-03-22] MEDS ORDERED: INSULIN REGULAR BOLUS (FROM DRIP BAG) IV ONE (15:34)
[2020-03-22] MEDS ORDERED: NITROGLYCERIN SL TABS 0.4 MG TAB SUBLINGUAL PRN (15:46)
[2020-03-22 15:51] LABS: Glucose,Whole Blood >600 mg/dL (75-99)
[2020-03-22 15:58] LABS: T4, Free (Free Thyroxine) 2.56 ng/dL (0.78-2.19)
[2020-03-22] MEDS: INSULIN REGULAR 100 UNIT in SODIUM CHLORIDE 0.9% 100 ML IV SCH ×2 (16:03→22:18)
[2020-03-22] MEDS: SODIUM CHLORIDE 0.9% 1,000 ML IV SCH (16:06)
[2020-03-22 17:23] LABS: Glucose,Whole Blood 545 mg/dL (75-99)
[2020-03-22 17:52] LABS: Glucose,Whole Blood 511 mg/dL (75-99)
[2020-03-22 19:05] LABS: Glucose,Whole Blood 458 mg/dL (75-99)
[2020-03-22 19:22] LABS: Potassium 4.2 mmol/L (3.5-5.1)
[2020-03-22 19:23] LABS: Phosphorus 3.8 mg/dL (2.5-4.5)
[2020-03-22 20:06] LABS: Glucose,Whole Blood 353 mg/dL (75-99)
[2020-03-22 21:04] LABS: Glucose,Whole Blood 303 mg/dL (75-99)
[2020-03-22 21:56] LABS: Glucose,Whole Blood 274 mg/dL (75-99)
[2020-03-22] MEDS: D5-0.45% NACL WITH KCL 20MEQ/L 1,000 ML IV SCH ×2 (22:12→22:57)
[2020-03-22 23:00] LABS: Glucose,Whole Blood 195 mg/dL (75-99)
[2020-03-22 23:18] LABS: Calcium 8.2 mg/dL (8.4-10.2); Phosphorus 3.2 mg/dL (2.5-4.5); Potassium 3.8 mmol/L (3.5-5.1)
[2020-03-23 00:11] LABS: Glucose,Whole Blood 151 mg/dL (75-99)
[2020-03-23 01:08] LABS: Glucose,Whole Blood 114 mg/dL (75-99)
[2020-03-23 02:18] LABS: Glucose,Whole Blood 87 mg/dL (75-99)
[2020-03-23 02:43] LABS: Glucose,Whole Blood 69 mg/dL (75-99)
[2020-03-23 03:18] LABS: Glucose,Whole Blood 95 mg/dL (75-99)
[2020-03-23] MEDS: SODIUM CHLORIDE 0.9% 1,000 ML IV SCH ×2 (03:19→15:42)
[2020-03-23 03:23] LABS: Calcium 8.4 mg/dL (8.4-10.2); Phosphorus 3.7 mg/dL (2.5-4.5); Potassium 4.1 mmol/L (3.5-5.1)
[2020-03-23 03:30] LABS: HCT 34.1 % (39.0-53.0); HGB 10.3 gm/dL (13.0-17.5); Hypochromasia Slight; MCH 28.3 pg (25.0-35.0); MCHC 30.1 g/dL (31.0-37.0); Mean Platelet Volume 8.9; Platelet Count 235 k/uL (150-450); RBC 3.62 m/uL (4.30-5.90); RDW 15.6 % (11.5-15.5); WBC 9.1 k/uL (3.8-10.6)
[2020-03-23 04:00] LABS: Glucose,Whole Blood 114 mg/dL (75-99)
[2020-03-23] MEDS: D5-0.45% NACL WITH KCL 20MEQ/L 1,000 ML IV SCH (04:01)
[2020-03-23 04:58] LABS: Glucose,Whole Blood 114 mg/dL (75-99)
[2020-03-23 05:53] LABS: Glucose,Whole Blood 105 mg/dL (75-99)
[2020-03-23 06:54] LABS: Glucose,Whole Blood 123 mg/dL (75-99)
[2020-03-23 08:39] VITALS: BMI 31.3
[2020-03-23 08:51] LABS: Calcium 8.4 mg/dL (8.4-10.2); Phosphorus 4.3 mg/dL (2.5-4.5); Potassium 4.4 mmol/L (3.5-5.1)
[2020-03-23] MEDS: hydrALAZINE HCL 25 MG TAB PO SCH ×3 (08:58→22:09)
[2020-03-23] MEDS: ASPIRIN 325 MG TAB PO SCH (08:58)
[2020-03-23] MEDS: amLODIPine 5 MG TAB PO SCH (08:59)
[2020-03-23] MEDS: METOPROLOL SUCCINATE (ER) 25 MG TAB.ER.24H PO SCH (08:59)
[2020-03-23] MEDS: cloNIDine HCL 0.2 MG TAB PO SCH ×3 (09:32→22:09)
--- NOTE | 2020-03-23 10:26 | US ---
EXAMINATION TYPE: US chest DATE OF EXAM: 03/23/2020 COMPARISON: NONE CLINICAL HISTORY: Markings for thoracentesis by pulmonary staff. Pleural effusion TECHNIQUE: Targeted ultrasound of the posterior lower bilateral hemithoraces EXAM MEASUREMENTS: Right Pleural Effusion pocket size: 10.4 cm Right skin surface to fluid distance: 1.7 cm Right side marked for possible thoracentesis outside the dept. Pulmonologists are able to review the images in the patient?s EMR. IMPRESSIONS: BILATERAL PLEURAL EFFUSIONS, GREATER ON THE RIGHT THAN THE LEFT.
--- NOTE | 2020-03-23 11:55 | P.CNPUL ---
History of Present Illness Consult date: 03/23/20 Chief complaint: DKA History of present illness: This is a 44-year-old male patient, was undergone a recent coronary bypass surgery and [facility] who also has type 1 diabetes mellitus with chronic complications of diabetes mellitus including nephropathy resulting into renal failure. 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 The patient is being dialyzed through a permacath in the left IJ. The patient does not have a fistula autograph at this point in time. Mother the patient is also interested in another transportation and he is currently being investigated for [facility]. He is currently on tacrolimus 7 mg on a daily basis. He has hypertension as and other comorbid condition. He denies having any CAD or congestion heart failure. The patient was having emesis yesterday and since he was started on hemodialysis, he was having episodic emesis specially after completing a dialysis session. Yesterday, his emesis was quite extensive and he was found to have elevated blood sugars. No abdominal pain. No shortness of breath. No chest pain. He did vomit dark brownish material. Denies having any bright red blood per rectum or melanotic stool. The patient has no altered mentation. He was complaining of generalized weakness. He came in to the emergency where he was found to have anion gap metabolic acidosis with positive ketones. His BUN was 20 with a creatinine of 5.7. Serum bicarbonate was down to 12. Blood sugar was 579. He was treated with an insulin drip and his anion gap is closed. His mentation is fully back to normal. He is awake and alert and following commands and answering questions appropriately. No fever. No chills. No active GI complaints at this point in time. The patient is cu rrently in intensive care unit. Review of Systems Constitutional: Reports lethargy, Reports weakness Eyes: bilateral blurred vision, bilateral decreased vision, denies bulging eye Ears: deny: decreased hearing, ear discharge, earache, tinnitus Ears, nose, mouth and throat: Denies headache, Denies sore throat Breasts: absent: as per HPI, gynecomastia Cardiovascular: Reports decreased exercise tolerance, Reports dyspnea on exertion Respiratory: Reports dyspnea Gastrointestinal: Reports nausea, Reports vomiting Genitourinary: Reports as per HPI Musculoskeletal: Reports as per HPI, Reports muscle weakness Musculoskeletal: absent: ankle pain, ankle stiffness, ankle swelling Integumentary: Reports as per HPI Neurological: Reports as per HPI Psychiatric: Reports as per HPI Endocrine: Reports high blood sugars Hematologic/Lymphatic: Reports as per HPI Past Medical History Past Medical History: Blood Disorder, Diabetes Mellitus, Hypertension, Renal Disease Additional Past Medical History / Comment(s): Coronary artery disease, recent bypass surgery, Type 1 diabetes mellitus, history of polycythemia rubra of the r ight requiring therapeutic phlebotomies, end-stage renal disease currently on hemodialysis and the patient has undergone previous kidney chest palpitation with subsequent rejection, dialysis dependent renal failure, hypertension, history of hyperparathyroidism History of Any Multi-Drug Resistant Organisms: None Reported Past Surgical History: Coronary Bypass/CABG Additional Past Surgical History / Comment(s): Coronary artery bypass surgery, history of kidney transplantation 2011, history of eye surgeries, parathyroidect jose, insertion of a permacath Past Anesthesia/Blood Transfusion Reactions: No Reported Reaction Past Psychological History: No Psychological Hx Reported Smoking Status: Current some day smoker Past Alcohol Use History: None Reported, Occasional Past Drug Use History: Marijuana Medications and Allergies Home Medications Medication Instructions Recorded Confirmed Type Insulin Aspart [NovoLOG Flexpen] 12 units SQ AC-TID 10/02/18 03/22/20 History Insulin Detemir (Levemir) [Levemir] 20 unit SQ HS 10/02/18 03/22/20 History amLODIPine BESYLATE 5 mg PO DAILY 02/02/19 03/22/20 History hydrALAZINE HCL 25 mg PO TID 02/02/19 03/22/20 History Metoprolol Succinate [Toprol XL] 25 mg PO DAILY 03/22/20 03/22/20 History cloNIDine HCL [Catapres] 0.6 mg PO TID 03/22/20 03/22/20 History Allergies Allergy/AdvReac Type Severity Reaction Status Date / Time famciclovir [From Famvir] Allergy Hallucinati Verified 03/22/20 13:11 ons Physical Exam Vitals: Vital Signs Temp Pulse Resp BP Pulse Ox 03/23/20 09:00 97 21 174/132 95 03/23/20 08:00 98.7 F 93 25 H 155/101 95 03/23/20 07:00 92 10 L 157/106 95 03/23/20 06:00 90 15 147/98 95 05/17/20 05:00 96 15 136/95 95 03/23/20 04:00 98.8 F 86 14 133/81 95 03/23/20 03:00 89 14 136/85 94 L 03/23/20 02:00 92 14 136/84 95 03/23/20 01:00 88 17 118/72 95 03/23/20 00:10 85 13 96 03/23/20 00:00 98.8 F 85 19 121/77 95 03/22/20 23:00 80 14 125/77 96 03/22/20 22:00 82 15 131/78 95 03/22/20 21:00 81 19 131/81 97 03/22/20 20:30 84 18 96 03/22/20 20:00 98.8 F 85 12 139/75 96 03/22/20 19:30 86 18 96 03/22/20 19:00 95 18 133/78 96 03/22/20 18:30 89 13 95 03/22/20 18:10 90 96 03/22/20 18:00 99.1 F 92 16 133/78 95 03/22/20 17:58 96 03/22/20 17:50 94 03/22/20 17:22 105 H 26 H 132/68 97 03/22/20 16:00 98.6 F 112 H 28 H 137/66 98 03/22/20 14:54 112 H 40 H 129/65 99 03/22/20 13:46 115 H 38 H 118/63 100 03/22/20 13:05 98.0 F 113 H 40 H 144/76 95 Intake and Output 03/22/20 03/23/20 03/23/20 22:59 06:59 14:59 Intake Total 009.458 8627.024 300 Output Total 0 0 0 Balance 396.792 7801.024 300 Intake: IV 500 150 D5-0.45% NaCl with KCl 150 20Meq/l 1,000 ml @ 150 mls/hr IV .Q6H40M KATHLEEN Rx# :[id number] Sodium Chloride 0.9% 1, 500 000 ml @ 100 mls/hr IV . Q10H KATHLEEN Rx#:[id number] Intake, IV Titration 59.890 1248.024 150 Amount D5-0.45% NaCl with KCl 1200 150 20Meq/l 1,000 ml @ 150 mls/hr IV .Q6H40M KATHLEEN Rx# :[id number] Insulin Regular 100 unit 59.890 48.024 In Sodium Chloride 0.9% 100 ml @ 0.1 UNITS/KG/HR 7.788 mls/hr IV .[id number] KATHLEEN Rx#:[id number] Oral 50 Output: Urine 0 0 0 Other: Weight 77.111 kg 88 kg 88 kg Gen. appearance the patient has some cushingoid features, comfortable likely distress awake and alert and responsive and following commands Head exam was generally normal. There was no scleral icterus or corneal arcus. Mucous membranes were moist. Neck was supple and without jugular venous distension, thyromegaly, or carotid bruits. Carotids were easily palpable bilaterally. There was no adenopathy. The patient has a left IJ permacath in place which is functional Cardiac exam revealed the PMI to be normally situated and sized. The rhythm was regular and no extrasystoles were noted during several minutes of auscultation. The first and second heart sounds were normal and physiologic splitting of the second heart sound was noted. There were no murmurs, rubs, clicks, or gallops. The patient has had a thoracotomy and the thoracotomy scar is dry clean and intact. Lungs sounds are diminished in the right lung base consistent with a pleural effusion. Otherwise the rest of the lungs are clear. Abdominal exam revealed normal bowel sounds. The abdomen was soft, non-tender, and without masses, organomegaly, or appreciable enlargement of the abdominal aorta. There is a transplanted kidney in the left lower quadrant/upper pubic area and this is a dry clean and intact. There is no direct tenderness rebound tensile guarding. Examination of the extremities revealed easily palpable radial, femoral and pedal pulses. There was no cyanosis, clubbing or edema. Examination of the skin revealed no evidence of significant rashes, suspicious appearing nevi or other concerning lesions. Neurologically awake and alert and there is no focal neurological deficits. Results - Laboratory Findings CBC and BMP: 03/23/20 02:48 03/23/20 08:07 PT/INR, D-dimer PT 12.1 sec (9.0-12.0) H 03/22/20 14:22 INR 1.2 (<1.2) H 03/22/20 14:22 Abnormal lab findings: Abnormal Labs 03/22/20 03/22/20 03/22/20 13:22 14:22 14:22 RBC 3.73 L Hgb 11.0 L Hct 36.9 L MCHC 29.8 L RDW Neutrophils # 8.4 H Lymphocytes # 0.6 L PT INR Sodium 131 L Chloride 91 L Carbon Dioxide 12 L BUN Creatinine 5.75 H Glucose 579 H* POC Glucose (mg/dL) 505 H Plasma Lactic Acid Preston Calcium AST 70 H Troponin I HDL Cholesterol TSH 6.860 H Free T4 2.56 H 03/22/20 03/22/20 03/22/20 14:22 14:22 14:22 RBC Hgb Hct MCHC RDW Neutrophils # Lymphocytes # PT 12.1 H INR 1.2 H Sodium Chloride Carbon Dioxide BUN Creatinine Glucose POC Glucose (mg/dL) Plasma Lactic Acid Preston 5.8 H* Calcium AST Troponin I 0.077 H* HDL Cholesterol TSH Free T4 03/22/20 03/22/20 03/22/20 15:50 17:21 17:51 RBC Hgb Hct MCHC RDW Neutrophils # Lymphocytes # PT INR Sodium Chloride Carbon Dioxide BUN Creatinine Glucose POC Glucose (mg/dL) >600 H 545 H 511 H Plasma Lactic Acid Preston Calcium AST Troponin I HDL Cholesterol TSH Free T4 03/22/20 03/22/20 03/22/20 18:26 18:26 18:27 RBC Hgb Hct MCHC RDW Neutrophils # Lymphocytes # PT INR Sodium 132 L Chloride 94 L Carbon Dioxide 17 L BUN 23 H Creatinine 5.47 H Glucose 480 H POC Glucose (mg/dL) Plasma Lactic Acid Preston 2.9 H* Calcium AST Troponin I 0.073 H* HDL Cholesterol TSH Free T4 03/22/20 03/22/20 03/22/20 19:03 20:05 21:03 RBC Hgb Hct MCHC RDW Neutrophils # Lymphocytes # PT INR Sodium Chloride Carbon Dioxide BUN Creatinine Glucose POC Glucose (mg/dL) 458 H 353 H 303 H Plasma Lactic Acid Preston Calcium AST Troponin I HDL Cholesterol TSH Free T4 03/22/20 03/22/20 03/22/20 21:54 22:45 22:45 RBC Hgb Hct MCHC RDW Neutrophils # Lymphocytes # PT INR Sodium 133 L Chloride 97 L Carbon Dioxide BUN 27 H Creatinine 5.85 H Glucose 206 H POC Glucose (mg/dL) 274 H Plasma Lactic Acid Preston 2.6 H* Calcium 8.2 L AST Troponin I HDL Cholesterol TSH Free T4 03/22/20 03/23/20 03/23/20 22:59 00:09 01:06 RBC Hgb Hct MCHC RDW Neutrophils # Lymphocytes # PT INR Sodium Chloride Carbon Dioxide BUN Creatinine Glucose POC Glucose (mg/dL) 195 H 151 H 114 H Plasma Lactic Acid Preston Calcium AST Troponin I HDL Cholesterol TSH Free T4 03/23/20 03/23/20 03/23/20 02:41 02:48 02:48 RBC Hgb Hct MCHC RDW Neutrophils # Lymphocytes # PT INR Sodium 135 L Chloride Carbon Dioxide BUN 28 H Creatinine 6.20 H Glucose 68 L POC Glucose (mg/dL) 69 L Plasma Lactic Acid Preston Calcium AST Troponin I 0.090 H* HDL Cholesterol 35 L TSH Free T4 03/23/20 03/23/20 03/23/20 02:48 03:58 04:57 RBC 3.62 L Hgb 10.3 L Hct 34.1 L MCHC 30.1 L RDW 15.6 H Neutrophils # Lymphocytes # PT INR Sodium Chloride Carbon Dioxide BUN Creatinine Glucose POC Glucose (mg/dL) 114 H 114 H Plasma Lactic Acid Preston Calcium AST Troponin I HDL Cholesterol TSH Free T4 03/23/20 03/23/20 03/23/20 05:51 06:53 08:07 RBC Hgb Hct MCHC RDW Neutrophils # Lymphocytes # PT INR Sodium 132 L Chloride 97 L Carbon Dioxide BUN 28 H Creatinine 6.52 H Glucose 138 H POC Glucose (mg/dL) 105 H 123 H Plasma Lactic Acid Preston Calcium AST Troponin I HDL Cholesterol TSH Free T4 - Diagnostic Findings Chest x-ray: image reviewed Assessment and Plan Plan: 1 acute DKA in a patient with known history of type 1 diabetes mellitus maintained on long-acting insulin outpatient basis. The anion gap metabolic acidosis resolved and the patient's gap is closed this morning. Blood sugars under better control and the patient was treated utilizing the DKA protocol. 2 type 1 diabetes mellitus 3 coronary artery disease with recent coronary artery bypass surgery. Sternal wound is dry clean and intact 4 small right-sided pleural effusion 5 dialysis-dependent renal failure. The patient is undergoing dialysis via permacath in the left IJ. The patient is post renal chest mentation in 2011 with subsequent rejection and the failure of the chest at that kidney. The patient is currently seeking a second chest mentation the patient is kept on Prograf. 6 hypertension 7 anemia of chronic disease 8 chronic nausea, consider diabetic gastroparesis 9 lactic acidosis, improved 10 abnormal thyroid function test and these levels need to be repeated after the patient leaves the hospital, could be related to the services a thyroid level due to critical illness Plan Discontinue the insulin drip and switch this patient on long-acting insulin and the patient will be started on 15 units along with a slight scale coverage Normal saline at the rate of 40 mL an hour Restart Prograf 7 mg by mouth twice a day Restart antihypertensive medication Ultrasound of the chest in consideration for thoracentesis if there is any sizable pleural effusion Continue aspirin Nephrology consultation regarding dialysis. The patient's last hemodialysis session was yesterday We'll continue to follow.
[2020-03-23 12:14] LABS: Glucose,Whole Blood 260 mg/dL (75-99)
[2020-03-23] MEDS: INSULIN ASPART (NovoLOG) 100 UNIT/ML VIAL SQ SCH ×5 (12:17→20:31)
[2020-03-23] MEDS: TACROLIMUS 1 MG CAP PO SCH ×2 (12:22→21:10)
--- NOTE | 2020-03-23 13:05 | P.HPIM ---
History of Present Illness H&P Date: 03/23/20 Chief Complaint: DKCarlota Plascencia is a pleasant 44-year-old white male, newer to our practice. He is insulin- dependent diabetic since a young age. He currently takes Levemir approximately 15 units daily along with Humalog to scale. He reports two days ago having increased nausea and vomiting after hemodialysis. He says it became severe and also had some darker blood emesis with vomiting the last time. He came in the emergency room and he found his sugar to be 600. He was found to be in diabetic ketoacidosis with glucose greater than 600 emergency room. He had a slightly elevated troponin at .073. He had an elevated plasma lactic acid level also after insulin drip in the intensive care unit, it is now normal. Staff report he is now off the insulin drip. He has a history of coronary bypass grafting at [facility]. Admission he had an elevated Ponon a .077 its increased .090. He has a history of a kidney transplant that failed and has been back on hemodialysis since December. He treats with the [facility] for this. Currently in the intensive care unit he feels much better. He denies any more nausea or vomiting. Hes not had any more hematemesis. The insulin drip is since been discontinued.Is on a rather high dose of Prograf due to his history of kidney transplant. He calls out to the transplant surgeons whether they still should be continued or not. Review of Systems All systems: negative Past Medical History Past Medical History: Blood Disorder, Diabetes Mellitus, Hypertension, Renal Disease Additional Past Medical History / Comment(s): Coronary artery disease, recent bypass surgery, Type 1 diabetes mellitus, history of polycythemia rubra of the right requiring therapeutic phlebotomies, end-stage renal disease currently on hemodialysis and the patient has undergone previous kidney chest palpitation with subsequent rejection, dialysis dependent renal failure, hypertension, history of hyperparathyroidism History of Any Multi-Drug Resistant Organisms: None Reported Past Surgical History: Coronary Bypass/CABG Additional Past Surgical History / Comment(s): Coronary artery bypass surgery, history of kidney transplantation 2011, history of eye surgeries, parathyroidectomy, insertion of a permacath Past Anesthesia/Blood Transfusion Reactions: No Reported Reaction Past Psychological History: No Psychological Hx Reported Smoking Status: Current some day smoker Past Alcohol Use History: None Reported, Occasional Past Drug Use History: Marijuana Medications and Allergies Home Medications Medication Instructions Recorded Confirmed Type Insulin Aspart [NovoLOG Flexpen] 12 units SQ AC-TID 10/02/18 03/22/20 History Insulin Detemir (Levemir) [Levemir] 20 unit SQ HS 10/02/18 03/22/20 History amLODIPine BESYLATE 5 mg PO DAILY 02/02/19 03/22/20 History hydrALAZINE HCL 25 mg PO TID 02/02/19 03/22/20 History Metoprolol Succinate [Toprol XL] 25 mg PO DAILY 03/22/20 03/22/20 History cloNIDine HCL [Catapres] 0.6 mg PO TID 03/22/20 03/22/20 History Allergies Allergy/AdvReac Type Severity Reaction Status Date / Time famciclovir [From Famvir] Allergy Hallucinati Verified 03/22/20 13:11 ons Physical Exam Vitals: Vital Signs Temp Pulse Resp BP Pulse Ox 03/23/20 09:00 97 21 174/132 95 03/23/20 08:00 98.7 F 93 25 H 155/101 95 03/23/20 07:00 92 10 L 157/106 95 03/23/20 06:00 90 15 147/98 95 03/23/20 05:00 96 15 136/95 95 03/23/20 04:00 98.8 F 86 14 133/81 95 03/23/20 03:00 89 14 136/85 94 L 03/23/20 02:00 92 14 136/84 95 03/23/20 01:00 88 17 118/72 95 03/23/20 00:10 85 13 96 03/23/20 00:00 98.8 F 85 19 121/77 95 03/22/20 23:00 80 14 125/77 96 03/22/20 22:00 82 15 131/78 95 03/22/20 21:00 81 19 131/81 97 03/22/20 20:30 84 18 96 03/22/20 20:00 98.8 F 85 12 139/75 96 03/22/20 19:30 86 18 96 03/22/20 19:00 95 18 133/78 96 03/22/20 18:30 89 13 95 03/22/20 18:10 90 96 03/22/20 18:00 99.1 F 92 16 133/78 95 03/22/20 17:58 96 03/22/20 17:50 94 03/22/20 17:22 105 H 26 H 132/68 97 03/22/20 16:00 98.6 F 112 H 28 H 137/66 98 03/22/20 14:54 112 H 40 H 129/65 99 03/22/20 13:46 115 H 38 H 118/63 100 03/22/20 13:05 98.0 F 113 H 40 H 144/76 95 Intake and Output 03/22/20 03/23/20 03/23/20 22:59 06:59 14:59 Intake Total 780.726 1866.024 300 Output Total 0 0 0 Balance 447.537 3505.024 300 Intake: IV 500 150 D5-0.45% NaCl with KCl 150 20Meq/l 1,000 ml @ 150 mls/hr IV .Q6H40M KATHLEEN Rx# :[id number] Sodium Chloride 0.9% 1, 500 000 ml @ 100 mls/hr IV . Q10H KATHLEEN Rx#:[id number] Intake, IV Titration 59.890 1248.024 150 Amount D5-0.45% NaCl with KCl 1200 150 20Meq/l 1,000 ml @ 150 mls/hr IV .Q6H40M KATHLEEN Rx# :[id number] Insulin Regular 100 unit 59.890 48.024 In Sodium Chloride 0.9% 100 ml @ 0.1 UNITS/KG/HR 7.788 mls/hr IV .[id number] KATHLEEN Rx#:[id number] Oral 50 Output: Urine 0 0 0 Other: Weight 77.111 kg 88 kg 88 kg General: Sitting up in bed, no acute distress in ICU HEENT: PERRL. EOMI. Oral mucosa moist. Neck: No adenopathy. No JVD Cardiac: Heart regular in rate and rhythm. No S3. No S4. No clicks, rubs. Tr/6 systolic murmur at RSB.. Large CABG scar on mid chest, permacath left chest wall in place Lungs: Bilateral bases diminished, occasional scattered coarse rhonchi, fine basilar crackles, or wheezing. Abdomen: Soft, minimal mid epigastric tenderness No mass. No organomegaly. Positive Bowel sounds present. Extremes:MINIMAL edema bilateral lower extremities, no clubbing, no cyanosis, positive pulses Skin:.No rash. Neurologic:No lateralizing deficits. CN II - XII grossly intact. Results CBC & Chem 7: 03/23/20 02:48 03/23/20 08:07 Labs: Abnormal Lab Results - Last 24 Hours (Table) 03/22/20 03/22/20 03/22/20 Range/Units 13:22 14:22 14:22 RBC 3.73 L (4.30-5.90) m/uL Hgb 11.0 L (13.0-17.5) gm/dL Hct 36.9 L (39.0-53.0) % MCHC 29.8 L (31.0-37.0) g/dL RDW (11.5-15.5) % Neutrophils # 8.4 H (1.3-7.7) k/uL Lymphocytes # 0.6 L (1.0-4.8) k/uL PT (9.0-12.0) sec INR (<1.2) Sodium 131 L (137-145) mmol/L Chloride 91 L (98-107) mmol/L Carbon Dioxide 12 L (22-30) mmol/L BUN (9-20) mg/dL Creatinine 5.75 H (0.66-1.25) mg/dL Glucose 579 H* (74-99) mg/dL POC Glucose (mg/dL) 505 H (75-99) mg/dL Plasma Lactic Acid Preston (0.7-2.0) mmol/L Calcium (8.4-10.2) mg/dL AST 70 H (17-59) U/L Troponin I (0.000-0.034) ng/mL HDL Cholesterol (40-60) mg/dL TSH 6.860 H (0.465-4.680) mIU/L Free T4 2.56 H (0.78-2.19) ng/dL 03/22/20 03/22/20 03/22/20 Range/Units 14:22 14:22 14:22 RBC (4.30-5.90) m/uL Hgb (13.0-17.5) gm/dL Hct (39.0-53.0) % MCHC (31.0-37.0) g/dL RDW (11.5-15.5) % Neutrophils # (1.3-7.7) k/uL Lymphocytes # (1.0-4.8) k/uL PT 12.1 H (9.0-12.0) sec INR 1.2 H (<1.2) Sodium (137-145) mmol/L Chloride (98-107) mmol/L Carbon Dioxide (22-30) mmol/L BUN (9-20) mg/dL Creatinine (0.66-1.25) mg/dL Glucose (74-99) mg/dL POC Glucose (mg/dL) (75-99) mg/dL Plasma Lactic Acid Preston 5.8 H* (0.7-2.0) mmol/L Calcium (8.4-10.2) mg/dL AST (17-59) U/L Troponin I 0.077 H* (0.000-0.034) ng/mL HDL Cholesterol (40-60) mg/dL TSH (0.465-4.680) mIU/L Free T4 (0.78-2.19) ng/dL 03/22/20 03/22/20 03/22/20 Range/Units 15:50 17:21 17:51 RBC (4.30-5.90) m/uL Hgb (13.0-17.5) gm/dL Hct (39.0-53.0) % MCHC (31.0-37.0) g/dL RDW (11.5-15.5) % Neutrophils # (1.3-7.7) k/uL Lymphocytes # (1.0-4.8) k/uL PT (9.0-12.0) sec INR (<1.2) Sodium (137-145) mmol/L Chloride (98-107) mmol/L Carbon Dioxide (22-30) mmol/L BUN (9-20) mg/dL Creatinine (0.66-1.25) mg/dL Glucose (74-99) mg/dL POC Glucose (mg/dL) >600 H 545 H 511 H (75-99) mg/dL Plasma Lactic Acid Preston (0.7-2.0) mmol/L Calcium (8.4-10.2) mg/dL AST (17-59) U/L Troponin I (0.000-0.034) ng/mL HDL Cholesterol (40-60) mg/dL TSH (0.465-4.680) mIU/L Free T4 (0.78-2.19) ng/dL 03/22/20 03/22/20 03/22/20 Range/Units 18:26 18:26 18:27 RBC (4.30-5.90) m/uL Hgb (13.0-17.5) gm/dL Hct (39.0-53.0) % MCHC (31.0-37.0) g/dL RDW (11.5-15.5) % Neutrophils # (1.3-7.7) k/uL Lymphocytes # (1.0-4.8) k/uL PT (9.0-12.0) sec INR (<1.2) Sodium 132 L (137-145) mmol/L Chloride 94 L (98-107) mmol/L Carbon Dioxide 17 L (22-30) mmol/L BUN 23 H (9-20) mg/dL Creatinine 5.47 H (0.66-1.25) mg/dL Glucose 480 H (74-99) mg/dL POC Glucose (mg/dL) (75-99) mg/dL Plasma Lactic Acid Preston 2.9 H* (0.7-2.0) mmol/L Calcium (8.4-10.2) mg/dL AST (17-59) U/L Troponin I 0.073 H* (0.000-0.034) ng/mL HDL Cholesterol (40-60) mg/dL TSH (0.465-4.680) mIU/L Free T4 (0.78-2.19) ng/dL 03/22/20 03/22/20 03/22/20 Range/Units 19:03 20:05 21:03 RBC (4.30-5.90) m/uL Hgb (13.0-17.5) gm/dL Hct (39.0-53.0) % MCHC (31.0-37.0) g/dL RDW (11.5-15.5) % Neutrophils # (1.3-7.7) k/uL Lymphocytes # (1.0-4.8) k/uL PT (9.0-12.0) sec INR (<1.2) Sodium (137-145) mmol/L Chloride (98-107) mmol/L Carbon Dioxide (22-30) mmol/L BUN (9-20) mg/dL Creatinine (0.66-1.25) mg/dL Glucose (74-99) mg/dL POC Glucose (mg/dL) 458 H 353 H 303 H (75-99) mg/dL Plasma Lactic Acid Preston (0.7-2.0) mmol/L Calcium (8.4-10.2) mg/dL AST (17-59) U/L Troponin I (0.000-0.034) ng/mL HDL Cholesterol (40-60) mg/dL TSH (0.465-4.680) mIU/L Free T4 (0.78-2.19) ng/dL 03/22/20 03/22/20 03/22/20 Range/Units 21:54 22:45 22:45 RBC (4.30-5.90) m/uL Hgb (13.0-17.5) gm/dL Hct (39.0-53.0) % MCHC (31.0-37.0) g/dL RDW (11.5-15.5) % Neutrophils # (1.3-7.7) k/uL Lymphocytes # (1.0-4.8) k/uL PT (9.0-12.0) sec INR (<1.2) Sodium 133 L (137-145) mmol/L Chloride 97 L (98-107) mmol/L Carbon Dioxide (22-30) mmol/L BUN 27 H (9-20) mg/dL Creatinine 5.85 H (0.66-1.25) mg/dL Glucose 206 H (74-99) mg/dL POC Glucose (mg/dL) 274 H (75-99) mg/dL Plasma Lactic Acid Preston 2.6 H* (0.7-2.0) mmol/L Calcium 8.2 L (8.4-10.2) mg/dL AST (17-59) U/L Troponin I (0.000-0.034) ng/mL HDL Cholesterol (40-60) mg/dL TSH (0.465-4.680) mIU/L Free T4 (0.78-2.19) ng/dL 03/22/20 03/23/20 03/23/20 Range/Units 22:59 00:09 01:06 RBC (4.30-5.90) m/uL Hgb (13.0-17.5) gm/dL Hct (39.0-53.0) % MCHC (31.0-37.0) g/dL RDW (11.5-15.5) % Neutrophils # (1.3-7.7) k/uL Lymphocytes # (1.0-4.8) k/uL PT (9.0-12.0) sec INR (<1.2) Sodium (137-145) mmol/L Chloride (98-107) mmol/L Carbon Dioxide (22-30) mmol/L BUN (9-20) mg/dL Creatinine (0.66-1.25) mg/dL Glucose (74-99) mg/dL POC Glucose (mg/dL) 195 H 151 H 114 H (75-99) mg/dL Plasma Lactic Acid Preston (0.7-2.0) mmol/L Calcium (8.4-10.2) mg/dL AST (17-59) U/L Troponin I (0.000-0.034) ng/mL HDL Cholesterol (40-60) mg/dL TSH (0.465-4.680) mIU/L Free T4 (0.78-2.19) ng/dL 03/23/20 03/23/20 03/23/20 Range/Units 02:41 02:48 02:48 RBC (4.30-5.90) m/uL Hgb (13.0-17.5) gm/dL Hct (39.0-53.0) % MCHC (31.0-37.0) g/dL RDW (11.5-15.5) % Neutrophils # (1.3-7.7) k/uL Lymphocytes # (1.0-4.8) k/uL PT (9.0-12.0) sec INR (<1.2) Sodium 135 L (137-145) mmol/L Chloride (98-107) mmol/L Carbon Dioxide (22-30) mmol/L BUN 28 H (9-20) mg/dL Creatinine 6.20 H (0.66-1.25) mg/dL Glucose 68 L (74-99) mg/dL POC Glucose (mg/dL) 69 L (75-99) mg/dL Plasma Lactic Acid Preston (0.7-2.0) mmol/L Calcium (8.4-10.2) mg/dL AST (17-59) U/L Troponin I 0.090 H* (0.000-0.034) ng/mL HDL Cholesterol 35 L (40-60) mg/dL TSH (0.465-4.680) mIU/L Free T4 (0.78-2.19) ng/dL 03/23/20 03/23/20 03/23/20 Range/Units 02:48 03:58 04:57 RBC 3.62 L (4.30-5.90) m/uL Hgb 10.3 L (13.0-17.5) gm/dL Hct 34.1 L (39.0-53.0) % MCHC 30.1 L (31.0-37.0) g/dL RDW 15.6 H (11.5-15.5) % Neutrophils # (1.3-7.7) k/uL Lymphocytes # (1.0-4.8) k/uL PT (9.0-12.0) sec INR (<1.2) Sodium (137-145) mmol/L Chloride (98-107) mmol/L Carbon Dioxide (22-30) mmol/L BUN (9-20) mg/dL Creatinine (0.66-1.25) mg/dL Glucose (74-99) mg/dL POC Glucose (mg/dL) 114 H 114 H (75-99) mg/dL Plasma Lactic Acid Preston (0.7-2.0) mmol/L Calcium (8.4-10.2) mg/dL AST (17-59) U/L Troponin I (0.000-0.034) ng/mL HDL Cholesterol (40-60) mg/dL TSH (0.465-4.680) mIU/L Free T4 (0.78-2.19) ng/dL 03/23/20 03/23/20 03/23/20 Range/Units 05:51 06:53 08:07 RBC (4.30-5.90) m/uL Hgb (13.0-17.5) gm/dL Hct (39.0-53.0) % MCHC (31.0-37.0) g/dL RDW (11.5-15.5) % Neutrophils # (1.3-7.7) k/uL Lymphocytes # (1.0-4.8) k/uL PT (9.0-12.0) sec INR (<1.2) Sodium 132 L (137-145) mmol/L Chloride 97 L (98-107) mmol/L Carbon Dioxide (22-30) mmol/L BUN 28 H (9-20) mg/dL Creatinine 6.52 H (0.66-1.25) mg/dL Glucose 138 H (74-99) mg/dL POC Glucose (mg/dL) 105 H 123 H (75-99) mg/dL Plasma Lactic Acid Preston (0.7-2.0) mmol/L Calcium (8.4-10.2) mg/dL AST (17-59) U/L Troponin I (0.000-0.034) ng/mL HDL Cholesterol (40-60) mg/dL TSH (0.465-4.680) mIU/L Free T4 (0.78-2.19) ng/dL / Range/Units 12:12 RBC (4.30-5.90) m/uL Hgb (13.0-17.5) gm/dL Hct (39.0-53.0) % MCHC (31.0-37.0) g/dL RDW (11.5-15.5) % Neutrophils # (1.3-7.7) k/uL Lymphocytes # (1.0-4.8) k/uL PT (9.0-12.0) sec INR (<1.2) Sodium (137-145) mmol/L Chloride (98-107) mmol/L Carbon Dioxide (22-30) mmol/L BUN (9-20) mg/dL Creatinine (0.66-1.25) mg/dL Glucose (74-99) mg/dL POC Glucose (mg/dL) 260 H (75-99) mg/dL Plasma Lactic Acid Preston (0.7-2.0) mmol/L Calcium (8.4-10.2) mg/dL AST (17-59) U/L Troponin I (0.000-0.034) ng/mL HDL Cholesterol (40-60) mg/dL TSH (0.465-4.680) mIU/L Free T4 (0.78-2.19) ng/dL Chest x-ray: report reviewed Thrombosis Risk Factor Assmnt - DVT/VTE Prophylaxis DVT/VTE Prophylaxis: Contraindicated - See note (active bleeding) - Choose All That Apply Each Factor Represents 1 point: Age 41-60 years Thrombosis Risk Factor Assessment Total Risk Factor Score: 1 Thrombosis Risk Factor Assessment Level: Low Risk Assessment and Plan (1) DKA (diabetic ketoacidoses) Current Visit: Yes Status: Acute Code(s): E11.10 - TYPE 2 DIABETES MELLITUS WITH KETOACIDOSIS WITHOUT COMA SNOMED Code(s): 177371985 (2) End stage chronic kidney disease Current Visit: Yes Status: Acute Code(s): N18.6 - END STAGE RENAL DISEASE SNOMED Code(s): 33020790 (3) Dependence on hemodialysis Current Visit: Yes Status: Acute Code(s): Z99.2 - DEPENDENCE ON RENAL DIALYSIS SNOMED Code(s): 594730576 (4) H/O four vessel coronary artery bypass graft Current Visit: Yes Status: Acute Code(s): Z95.1 - PRESENCE OF AORTOCORONARY BYPASS GRAFT SNOMED Code(s): 995457336 (5) CAD (coronary artery disease) Current Visit: Yes Status: Acute Code(s): I25.10 - ATHSCL HEART DISEASE OF [place] CORONARY ARTERY W/O ANG PCTRS SNOMED Code(s): 97275612 (6) Insulin dependent diabetes mellitus Current Visit: Yes Status: Acute Code(s): RKB9055 - SNOMED Code(s): 20926495 (7) Vomiting with nausea, not intractable Current Visit: Yes Status: Acute Code(s): R11.2 - NAUSEA WITH VOMITING, UNSPECIFIED SNOMED Code(s): 45902809 (8) Kidney transplant failure Current Visit: Yes Status: Acute Code(s): T86.12 - KIDNEY TRANSPLANT FAILURE SNOMED Code(s): 226680159 (9) Kidney transplant recipient Current Visit: Yes Status: Acute Code(s): Z94.0 - KIDNEY TRANSPLANT STATUS SNOMED Code(s): 724521871 (10) Hypertension Current Visit: Yes Status: Acute Code(s): I10 - ESSENTIAL (PRIMARY) HYPERTENSION SNOMED Code(s): 06443953 (11) Hyperlipidemia Current Visit: Yes Status: Acute Code(s): E78.5 - HYPERLIPIDEMIA, UNSPECIFIED SNOMED Code(s): 63616598 (12) Elevated troponin Current Visit: Yes Status: Acute Code(s): R79.89 - OTHER SPECIFIED ABNORMAL FINDINGS OF BLOOD CHEMISTRY SNOMED Code(s): 351558473 (13) Bloody vomitus Current Visit: Yes Status: Acute Code(s): K92.0 - HEMATEMESIS SNOMED Code(s): 9543389 (14) Pleural effusion, right Current Visit: Yes Status: Acute Code(s): J90 - PLEURAL EFFUSION, NOT ELSEWHERE CLASSIFIED SNOMED Code(s): 84756440 (15) Pleural effusion, left Current Visit: Yes Status: Acute Code(s): J90 - PLEURAL EFFUSION, NOT ELSE WHERE CLASSIFIED SNOMED Code(s): 57061874 Plan: Will consult critical care for management of those pleural effusion and Lactic acidosis. Will consult cardiology regardings abnormal troponins. Will consult nephrology regarding his hemodialysis and ESRD. Resume his current insulin treatment.If hes clear by consultants hes medically stable at this time for medical floor Wait on [facility] kidney transplant team regarding Prograf. Ill repeat labs in a.m. he will be reevaluated in the next 24 hours. I spent 32 minutes with patient and on his paperwork today
--- NOTE | 2020-03-23 13:46 | P.CRDCN ---
History of Present Illness Consult date: 03/23/20 History of present illness: This is a 44-year-old gentleman with history of open heart surgery about 3 months ago and also chronic renal failure On dialysis, who is admitted through the emergency room With the diagnosis of diabetes Ketoacidosis. Patient had slight changes in mentation. Patient al evidence of acidosis and metabolic derangements. We are asked to see the patient because of abnormal troponins and also history of open-heart surgery. Patient's creatinine is in the range of 5. The troponin values do not show a trend consistent with acute coronary sy ndrome. Patient complains of incisional chest discomfort and left-sided shoulder and back pain. He claims tht his left arm looked inflamed and red. He did have some discomfort is both hands. EKGs did not reveal any acute changes. His chest pains appear to be atypical. Patient is getting dialysis. He doesn't have much urine output. He has history of previous failed kidney transplant. He is being evaluated for possible repeat transplant at [facility]. We'll continue to monitor his cardiac enzymes. Will get echocardiogram in the morning. Further recommendation, will depend upon the clinical course. Review of Systems As per the chart Past Medical History Past Medical History: Blood Disorder, Diabetes Mellitus, Hypertension, Renal Disease Additional Past Medical History / Comment(s): Coronary artery disease, recent bypass surgery, Type 1 diabetes mellitus, history of polycythemia rubra of the right requiring therapeutic phlebotomies, end-stage renal disease currently on hemodialysis and the patient has undergone previous kidney chest palpitation with subsequent rejection, dialysis dependent renal failure, hypertension, history of hyperparathyroidism History of Any Multi-Drug Resistant Organisms: None Reported Past Surgical History: Coronary Bypass/CABG Additional Past Surgical History / Comment(s): Coronary artery bypass surgery, history of kidney transplantation 2011, history of eye surgeries, parathyroidectomy, insertion of a permacath Past Anesthesia/Blood Transfusion Reactions: No Reported Reaction Past Psychological History: No Psychological Hx Reported Smoking Status: Current some day smoker Past Alcohol Use History: None Reported, Occasional Past Drug Use History: Marijuana Medications and Allergies Home Medications Medication Instructions Recorded Confirmed Type Insulin Aspart [NovoLOG Flexpen] 12 units SQ AC-TID 10/02/18 03/22/20 History Insulin Detemir (Levemir) [Levemir] 20 unit SQ HS 10/02/18 03/22/20 History amLODIPine BESYLATE 5 mg PO DAILY 02/02/19 03/22/20 History hydrALAZINE HCL 25 mg PO TID 02/02/19 03/22/20 History Metoprolol Succinate [Toprol XL] 25 mg PO DAILY 03/22/20 03/22/20 History cloNIDine HCL [Catapres] 0.6 mg PO TID 03/22/20 03/22/20 History Allergies Allergy/AdvReac Type Severity Reaction Status Date / Time famciclovir [From Famvir] Allergy Hallucinati Verified 03/22/20 13:11 ons Physical Exam Vitals: Vital Signs Temp Pulse Resp BP Pulse Ox 03/23/20 09:00 97 21 174/132 95 03/23/20 08:00 98.7 F 93 25 H 155/101 95 03/23/20 07:00 92 10 L 157/106 95 03/23/20 06:00 90 15 147/98 95 03/23/20 05:00 96 15 136/95 95 03/23/20 04:00 98.8 F 86 14 133/81 95 03/23/20 03:00 89 14 136/85 94 L 03/23/20 02:00 92 14 136/84 95 03/23/20 01:00 88 17 118/72 95 03/23/20 00:10 85 13 96 03/23/20 00:00 98.8 F 85 19 121/77 95 03/22/20 23:00 80 14 125/77 96 03/22/20 22:00 82 15 131/78 95 03/22/20 21:00 81 19 131/81 97 03/22/20 20:30 84 18 96 03/22/20 20:00 98.8 F 85 12 139/75 96 03/22/20 19:30 86 18 96 03/22/20 19:00 95 18 133/78 96 03/22/20 18:30 89 13 95 03/22/20 18:10 90 96 03/22/20 18:00 99.1 F 92 16 133/78 95 03/22/20 17:58 96 03/22/20 17:50 94 03/22/20 17:22 105 H 26 H 132/68 97 03/22/20 16:00 98.6 F 112 H 28 H 137/66 98 03/22/20 14:54 112 H 40 H 129/65 99 03/22/20 13:46 115 H 38 H 118/63 100 Intake and Output 03/22/20 03/23/20 03/23/20 22:59 06:59 14:59 Intake Total 005.746 5108.024 300 Output Total 0 0 0 Balance 736.927 0627.024 300 Intake: IV 500 150 D5-0.45% NaCl with KCl 150 20Meq/l 1,000 ml @ 150 mls/hr IV .Q6H40M KATHLEEN Rx# :[id number] Sodium Chloride 0.9% 1, 500 000 ml @ 100 mls/hr IV . Q10H KATHLEEN Rx#:[id number] Intake, IV Titration 59.890 1248.024 150 Amount D5-0.45% NaCl with KCl 1200 150 20Meq/l 1,000 ml @ 150 mls/hr IV .Q6H40M KATHLEEN Rx# :[id number] Insulin Regular 100 unit 59.890 48.024 In Sodium Chloride 0.9% 100 ml @ 0.1 UNITS/KG/HR 7.788 mls/hr IV .[id number] KATHLEEN Rx#:[id number] Oral 50 Output: Urine 0 0 0 Other: Weight 77.111 kg 88 kg 88 kg Patient is alert and oriented. Doesn't appear to be in acute distress. No evidence of any JVD. Neck is supple. Lungs appear to be clear without any wheezing . Diminished breath sounds at bases.Abdomen soft. No significan, edema. Results 03/23/20 02:48 03/23/20 08:07 Cardiac Enzymes 03/22/20 03/22/20 03/22/20 Range/Units 14:22 14:22 18:26 AST 70 H (17-59) U/L Troponin I 0.077 H* 0.073 H* (0.000-0.034) ng/mL 03/23/20 Range/Units 02:48 AST (17-59) U/L Troponin I 0.090 H* (0.000-0.034) ng/mL Coagulation 03/22/20 Range/Units 14:22 PT 12.1 H (9.0-12.0) sec APTT 24.8 (22.0-30.0) sec Lipids 03/23/20 Range/Units 02:48 Triglycerides 103 (<150) mg/dL Cholesterol 121 (<200) mg/dL HDL Cholesterol 35 L (40-60) mg/dL CBC 03/22/20 03/23/20 Range/Units 14:22 02:48 WBC 9.7 9.1 (3.8-10.6) k/uL RBC 3.73 L 3.62 L (4.30-5.90) m/uL Hgb 11.0 L 10.3 L (13.0-17.5) gm/dL Hct 36.9 L 34.1 L (39.0-53.0) % Plt Count 267 235 (150-450) k/uL Comprehensive Metabolic Panel 03/22/20 03/22/20 03/22/20 Range/Units 14:22 18:26 22:45 Sodium 131 L 132 L 133 L (137-145) mmol/L Potassium 4.8 4.2 3.8 (3.5-5.1) mmol/L Chloride 91 L 94 L 97 L (98-107) mmol/L Carbon Dioxide 12 L 17 L 24 (22-30) mmol/L BUN 20 23 H 27 H (9-20) mg/dL Creatinine 5.75 H 5.47 H 5.85 H (0.66-1.25) mg/dL Glucose 579 H* 480 H 206 H (74-99) mg/dL Calcium 8.4 8.2 L (8.4-10.2) mg/dL AST 70 H (17-59) U/L ALT 22 (4-49) U/L Alkaline Phosphatase 124 (38-126) U/L Total Protein 6.7 (6.3-8.2) g/dL Albumin 3.6 (3.5-5.0) g/dL 03/23/20 03/23/20 Range/Units 02:48 08:07 Sodium 135 L 132 L (137-145) mmol/L Potassium 4.1 4.4 (3.5-5.1) mmol/L Chloride 98 97 L (98-107) mmol/L Carbon Dioxide 25 22 (22-30) mmol/L BUN 28 H 28 H (9-20) mg/dL Creatinine 6.20 H 6.52 H (0.66-1.25) mg/dL Glucose 68 L 138 H (74-99) mg/dL Calcium 8.4 8.4 (8.4-10.2) mg/dL AST (17-59) U/L ALT (4-49) U/L Alkaline Phosphatase (38-126) U/L Total Protein (6.3-8.2) g/dL Albumin (3.5-5.0) g/dL Current Medications Generic Name Dose Route Start Last Admin Trade Name Freq PRN Reason Stop Dose Admin Amlodipine Besylate 5 mg 03/23/20 09:00 03/23/20 08:59 Norvasc PO 5 mg DAILY KATHLEEN Administration Aspirin 325 mg 03/23/20 09:00 03/23/20 08:58 Aspirin PO 325 mg DAILY KATHLEEN Administration Clonidine 0.6 mg 03/23/20 09:00 03/23/20 09:32 Catapres PO 0.6 mg TID KATHLEEN Administration Hydralazine HCl 25 mg 03/23/20 09:00 03/23/20 08:58 Apresoline PO 25 mg TID KATHLEEN Administration Sodium Chloride 1,000 mls @ 40 mls/hr 03/22/20 15:45 03/23/20 03:19 Saline 0.9% IV Not Given .Q24H KATHLEEN Insulin Aspart 12 unit 03/23/20 12:30 03/23/20 12:17 Novolog SQ 12 unit AC-TID KATHLEEN Administration Insulin Aspart 0 unit 03/23/20 12:30 03/23/20 12:18 Novolog SQ 4 unit ACHS KATHLEEN Administration Protocol Insulin Detemir 15 unit 03/23/20 21:00 Levemir SQ HS KATHLEEN Metoprolol Succinate 25 mg 03/23/20 09:00 03/23/20 08:59 Toprol Xl PO 25 mg DAILY KATHLEEN Administration Nitroglycerin 0.4 mg 03/22/20 15:46 Nitrostat SUBLINGUAL Q5M PRN Chest Pain Tacrolimus 7 mg 03/23/20 11:00 03/23/20 12:22 Prograf PO 7 mg BID KATHLEEN Administration Intake and Output 03/22/20 03/23/20 03/23/20 22:59 06:59 14:59 Intake Total 794.790 0229.024 300 Output Total 0 0 0 Balance 551.148 5510.024 300 Intake: IV 500 150 D5-0.45% NaCl with KCl 150 20Meq/l 1,000 ml @ 150 mls/hr IV .Q6H40M KATHLEEN Rx# :[id number] Sodium Chloride 0.9% 1, 500 000 ml @ 100 mls/hr IV . Q10H KATHLEEN Rx#:[id number] Intake, IV Titration 59.890 1248.024 150 Amount D5-0.45% NaCl with KCl 1200 150 20Meq/l 1,000 ml @ 150 mls/hr IV .Q6H40M KATHLEEN Rx# :[id number] Insulin Regular 100 unit 59.890 48.024 In Sodium Chloride 0.9% 100 ml @ 0.1 UNITS/KG/HR 7.788 mls/hr IV .H11G64M KATHLEEN Rx#:[id number] Oral 50 Output: Urine 0 0 0 Other: Weight 77.111 kg 88 kg 88 kg Patient Weight 03/24/20 06:59 Weight 88 kg 03/23/20 02:48 03/23/20 08:07 EKG Interpretations (text) Sinus tachycardia. Old inferior wall OH. No acute ST-T changes Assessment and Plan (1) Atypical chest pain Current Visit: Yes Status: Acute Code(s): R07.89 - OTHER CHEST PAIN SNOMED Code(s): 385308839 (2) CAD (coronary artery disease) Current Visit: Yes Status: Acute Code(s): I25.10 - ATHSCL HEART DISEASE OF [place] CORONARY ARTERY W/O ANG PCTRS SNOMED Code(s): 78166529 (3) DKA (diabetic ketoacidoses) Current Visit: Yes Status: Acute Code(s): E11.10 - TYPE 2 DIABETES MELLITUS WITH KETOACIDOSIS WITHOUT COMA SNOMED Code(s): 824372727 (4) Dependence on hemodialysis Current Visit: Yes Status: Acute Code(s): Z99.2 - DEPENDENCE ON RENAL DI ALYSIS SNOMED Code(s): 023513350 (5) Elevated serum creatinine Current Visit: Yes Status: Acute Code(s): R79.89 - OTHER SPECIFIED ABNORMAL FINDINGS OF BLOOD CHEMISTRY SNOMED Code(s): 178356170 (6) Elevated troponin Current Visit: Yes Status: Acute Code(s): R79.89 - OTHER SPECIFIED ABNORMAL FINDINGS OF BLOOD CHEMISTRY SNOMED Code(s): 700692500 (7) H/O four vessel coronary artery bypass graft Current Visit: Yes Status: Acute Code(s): Z95.1 - PRESENCE OF AORTOCORONARY BYPASS GRAFT SNOMED Code(s): 819354021 Plan: Continue to monitor his cardiac enzymes. Echocardiogram in the morning. If patient remains stable without any rurrence of chest pain, no further cardiac workup at this time.
--- NOTE | 2020-03-23 15:28 | CONS ---
CONSULTATION REASON FOR CONSULT: Renal failure. HISTORY OF PRESENT ILLNESS: The patient is a 44-year-old male with end-stage renal disease recently started on dialysis. Patient has a failed renal transplant, currently still maintained on Prograf. He was admitted to the hospital with complaints of nausea and vomiting. The patient stated that he was recently feeling sick after dialysis treatments. He denied any significant drop in blood pressure. I am not able to review the treatment sheets at this time since the unit is closed. Upon admission patient was found to be in DKA. He has been treated and insulin drip is now discontinued. No complaints of chest pain or shortness of breath. Patient did eat today. No fevers or chills. No cough. No significant urine output currently. PAST MEDICAL HISTORY: Type 2 diabetes, hypertension, end-stage renal disease, status post kidney transplantation in 2011, currently back on dialysis. History of polycythemia rubra, type 1 diabetes, coronary artery disease. PAST SURGICAL HISTORY: Coronary artery bypass surgery, left IJ catheter placement, kidney transplantation 2011, history of parathyroidectomy, multiple eye surgeries. SOCIAL HISTORY: Positive for smoking. Occasional use of marijuana. No alcohol abuse. MEDICATIONS: Medications at home prior to admission include hydralazine, amlodipine, insulin, metoprolol, Prograf, clonidine. ALLERGIES: Include FAMCICLOVIR which causes hallucinations. REVIEW OF SYSTEMS: As per HPI, other systems negative. PHYSICAL EXAMINATION: Patient is comfortable, awake, not in any acute distress. Alert and oriented x3. Blood pressure was 159/95, heart rate 72 per minute, he is afebrile. Examination of the heart S1, S2. Examination of lungs, decreased breath sounds at bases. Abdomen is soft, nontender. Examination of lower extremities shows no significant edema. LINOLEUM TILE FLOOR LAYER exam grossly intact. LABS: Show sodium 132, potassium 4.4, chloride 97, phosphorus 4.3, BUN 28, serum creatinine 6.52. ASSESSMENT: 1. End-stage renal disease, maintained on dialysis on a Tuesday, Tuesday, Tuesday schedule via left IJ PermCath. The patient will be scheduled for dialysis tomorrow. His blood pressure is currently on the lower side, although it was high earlier this morning. We will plan for about 1-2 L of ultrafiltration. 2. Volume overload noted on chest x-ray. About 1-2 L of ultrafiltration planned for tomorrow with dialysis. 3. Status post renal transplantation 2011, currently back on dialysis. Continue with the Prograf. Check Prograf level as this patient does not have significant urine output. 4. Diabetic ketoacidosis. Anion gap is now close. The patient is off the insulin drip. 5. Type 1 diabetes. 6. Diabetic retinopathy. 7. Coronary artery disease with history of coronary artery bypass surgery. PLAN: Hemodialysis in a.m. Goal UF 1-2 L. Will review treatment sheets at outpatient dialysis. Check Prograf level. Check tacrolimus level. Continue with the current dose of Prograf for now. If blood pressure remains low decrease clonidine as it is a significantly high dose. Thank you for this consultation. Will continue to follow the patient with you during his hospitalization. MMODL / IJN: [id number] /
[2020-03-23] MEDS ORDERED: INSULIN DETEMIR (LEVEMIR) 100 UNIT/ML SYR SQ ONE (16:45)
[2020-03-23 16:58] LABS: Glucose,Whole Blood 208 mg/dL (75-99)
[2020-03-23 20:26] LABS: Glucose,Whole Blood 105 mg/dL (75-99)
[2020-03-23 23:41] LABS: Glucose,Whole Blood 91 mg/dL (75-99)
[2020-03-24 04:52] LABS: Basophils % (A) 1 %; Eosinophils # (A) 0.2 k/uL (0-0.7); Eosinophils % (A) 4 %; HCT 36.8 % (39.0-53.0); HGB 11.3 gm/dL (13.0-17.5); Hypochromasia Moderate; Lymphocytes # (A) 2.2 k/uL (1.0-4.8); Lymphocytes % (A) 38 %; MCH 29.1 pg (25.0-35.0); MCHC 30.6 g/dL (31.0-37.0); Mean Platelet Volume 8.6; Monocytes # (A) 0.4 k/uL (0-1.0); Monocytes % (A) 7 %; Neutrophils # (A) 2.8 k/uL (1.3-7.7); Neutrophils % (A) 49 %; Platelet Count 212 k/uL (150-450); RBC 3.87 m/uL (4.30-5.90); RDW 15.4 % (11.5-15.5); WBC 5.8 k/uL (3.8-10.6)
[2020-03-24 06:02] LABS: Magnesium 2.1 mg/dL (1.6-2.3); Potassium 4.6 mmol/L (3.5-5.1)
[2020-03-24 06:14] LABS: Calcium 8.4 mg/dL (8.4-10.2)
[2020-03-24 06:36] LABS: Glucose,Whole Blood 46 mg/dL (75-99)
[2020-03-24 06:53] LABS: Glucose,Whole Blood 124 mg/dL (75-99)
[2020-03-24] MEDS: INSULIN ASPART (NovoLOG) 100 UNIT/ML VIAL SQ SCH ×7 (07:00→20:47)
[2020-03-24 08:42] LABS: Glucose,Whole Blood 167 mg/dL (75-99)
[2020-03-24] MEDS: ASPIRIN 325 MG TAB PO SCH (08:44)
[2020-03-24] MEDS: cloNIDine HCL 0.2 MG TAB PO SCH ×3 (08:44→22:28)
[2020-03-24] MEDS: METOPROLOL SUCCINATE (ER) 25 MG TAB.ER.24H PO SCH (08:45)
[2020-03-24] MEDS: hydrALAZINE HCL 25 MG TAB PO SCH ×3 (08:45→20:49)
[2020-03-24] MEDS: amLODIPine 5 MG TAB PO SCH (08:45)
[2020-03-24] MEDS: TACROLIMUS 1 MG CAP PO SCH ×2 (10:07→20:48)
[2020-03-24 11:43] LABS: Hemoglobin A1C 7.1 % (4.0-6.0)
[2020-03-24 12:01] LABS: Glucose,Whole Blood 67 mg/dL (75-99)
[2020-03-24 12:18] LABS: Glucose,Whole Blood 87 mg/dL (75-99)
--- NOTE | 2020-03-24 13:02 | PN ---
PROGRESS NOTE Sumit is a 44-year-old gentleman who was admitted to hospital with atypical chest pain. He has history of coronary artery disease and recent bypass surgery, hypertension, and diabetes. Has end-stage renal disease on hemodialysis. His admission is primarily related to cough, nausea, vomiting and feeling sick. On his presentation, he was found to be in diabetic ketoacidosis. On exam, he is afebrile. Heart rate is 60 beats per minute. Blood pressure is 135/80, respiratory rate is 18, O2 saturation is 98% on 2 L. There is no jugular venous distention. Chest exam reveals good air entry bilaterally. Heart exam reveals first and second heart sounds. No gallop. No murmur. Abdomen is soft, nontender. Exam of the extremities did not reveal any edema. Peripheral pulses are felt. LABS: Show that the hemoglobin is 11.3, platelet count is 212. Potassium is 4.6, BUN is 36, creatinine is 7.9. ASSESSMENT: 1. Atypical chest pain. 2. Coronary artery disease, status post coronary artery bypass grafting. 3. End-stage renal disease and hemodialysis. PLAN: Cardiac-griffiths, patient is doing well. His chest discomfort has resolved. I will obtain a 2D echo on him if one has not been done. MMODL / IJN: [id number] /
--- NOTE | 2020-03-24 15:12 | P.PN ---
Subjective Progress Note Date: 03/24/20 Principal diagnosis: Acute diabetic ketoacidosis This is a 44-year-old male patient, was undergone a recent coronary bypass surgery and [facility] who also has type 1 diabetes mellitus with chronic complications of diabetes mellitus including nephropathy resulting into renal failure. 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 The patient is being dialyzed through a permacath in the left IJ. The patient does not have a fistula autograph at this point in time. Mother the patient is also interested in another transportation and he is currently being investigated for [facility]. He is currently on tacrolimus 7 mg on a daily basis. He has hypertension as and other comorbid condition. He denies having any CAD or congestion heart failure. The patient was having emesis yesterday and since he was started on hemodialysis, he was having episodic emesis specially after completing a dialysis session. Yesterday, his emesis was quite extensive and he was found to have elevated blood sugars. No abdominal pain. No shortness of breath. No chest pain. He did vomit dark brownish material. Denies having any bright red blood per rectum or melanotic stool. The patient has no altered mentation. He was complaining of generalized weakness. He came in to the [facility] where he was found to have anion gap metabolic acidosis with positive ketones. His BUN was 20 with a creatinine of 5.7. Serum bicarbonate was down to 12. Blood sugar was 579. He was treated with an insulin drip and his anion gap is closed. His mentation is fully back to normal. He is awake and alert and following commands and answering questions appropriately. No fever. No chills. No active GI complaints at this point in time. The patient is currently in intensive care unit. Patient was reevaluated today on 03/24/20, patient presented with DKA, and he is now feeling much better. Patient is on chronic hemodialysis for chronic kidney disease, and he had a previous history of kidney transplant. His on iron gap has closed, patient is feeling better, he is in sinus rhythm, hemodynamically stable, he is on room air with O2 saturation of 96%. He had an episode of hypoglycemia today, and that responded to D50. Presently no cough no wheezing no shortness of breath, patient is concerned that he always develops episodes of vomiting after hemodialysis. And I recommended that he discusses this with the log haul chain feeder when he rounds on him today. Electrolytes are normal his anion gap is 12. CBC is relatively normal BUN is 36 creatinine is 7.92. Ultrasound of the chest yesterday showed good sized right-sided pleural effusion, hence considering the patient is undergoing hemodialysis, will wait before deciding on thoracentesis. Objective - Vital Signs Vital signs: Vital Signs Temp 97.7 F 03/24/20 08:00 Pulse 63 03/24/20 08:00 Resp 18 03/24/20 08:00 BP 135/83 03/24/20 08:00 Pulse Ox 98 03/24/20 08:00 Intake & Output 03/23/20 03/24/20 03/24/20 18:59 06:59 18:59 Intake Total 1490 1040 300 Output Total 0 Balance 1490 1040 300 Weight 88 kg 86.4 kg Intake: IV 590 440 D5-0.45% NaCl with KCl 150 20Meq/l 1,000 ml @ 150 mls/hr IV .Q6H40M KATHLEEN Rx# :[id number] Sodium Chloride 0.9% 1, 440 440 000 ml @ 40 mls/hr IV . Q24H KATHLEEN Rx#:[id number] Intake, IV Titration 150 Amount D5-0.45% NaCl with KCl 150 20Meq/l 1,000 ml @ 150 mls/hr IV .Q6H40M KATHLEEN Rx# :[id number] Oral 750 600 300 Output: Urine 0 Other: # Voids 0 - Exam General: Revealed a very pleasant 44-year-old white male in no distress. HEENT: PERRL. EOMI. Oral mucosa moist. Neck: No adenopathy. No JVD Cardiac: Heart regular in rate and rhythm. No S3. No S4. No clicks, rubs. Lungs: Symmetrical chest expansion, slightly diminished breath sounds at the right base. Left-sided clear. Abdomen: Soft, minimal mid epigastric tenderness No mass. No organomegaly. Positive Bowel sounds present. Extremes: Trace of bipedal edema, no clubbing, no cyanosis. Skin:.No rash. Neurologic:No lateralizing deficits. CN II - XII grossly intact. Psychiatric: Normal mood, affect and normal mental status examination. - Labs CBC & Chem 7: 03/24/20 04:17 03/24/20 04:17 Labs: Abnormal Lab Results - Last 24 Hours (Table) 03/23/20 03/23/20 03/23/20 Range/Units 02:48 16:57 20:23 RBC (4.30-5.90) m/uL Hgb (13.0-17.5) gm/dL Hct (39.0-53.0) % MCHC (31.0-37.0) g/dL Sodium (137-145) mmol/L Chloride (98-107) mmol/L BUN (9-20) mg/dL Creatinine (0.66-1.25) mg/dL Glucose (74-99) mg/dL POC Glucose (mg/dL) 208 H 105 H (75-99) mg/dL Hemoglobin A1c 7.1 H (4.0-6.0) % 03/24/20 03/24/20 03/24/20 Range/Units 04:17 04:17 06:35 RBC 3.87 L (4.30-5.90) m/uL Hgb 11.3 L (13.0-17.5) gm/dL Hct 36.8 L (39.0-53.0) % MCHC 30.6 L (31.0-37.0) g/dL Sodium 132 L (137-145) mmol/L Chloride 97 L (98-107) mmol/L BUN 36 H (9-20) mg/dL Creatinine 7.92 H* (0.66-1.25) mg/dL Glucose 39 L* (74-99) mg/dL POC Glucose (mg/dL) 46 L (75-99) mg/dL Hemoglobin A1c (4.0-6.0) % 03/24/20 03/24/20 03/24/20 Range/Units 06:52 08:40 11:49 RBC (4.30-5.90) m/uL Hgb (13.0-17.5) gm/dL Hct (39.0-53.0) % MCHC (31.0-37.0) g/dL Sodium (137-145) mmol/L Chloride (98-107) mmol/L BUN (9-20) mg/dL Creatinine (0.66-1.25) mg/dL Glucose (74-99) mg/dL POC Glucose (mg/dL) 124 H 167 H 67 L (75-99) mg/dL Hemoglobin A1c (4.0-6.0) % Microbiology - Last 24 Hours (Table) 03/22/20 14:38 Blood Culture - Preliminary Blood No Growth after 24 hours Assessment and Plan Assessment: Impression: Acute diabetic ketoacidosis, significantly improved with treatment as per protocol. Type 1 diabetes. Coronary artery disease and previous/recent CABG. Right pleural effusion most likely secondary to fluid overload secondary to renal failure. Will likely improve with hemodialysis. Dialysis dependent renal failure Benign essential hypertension History of kidney transplant. Diabetic gastroparesis Anemia of chronic disease Recommendation: Continue present supportive care measures. Continue hemodialysis. Insulin as per scale and long-acting insulin already started. Resume home meds including Prograf. Continue to monitor blood pressure. Consider ultrasound guided thoracentesis of the right pleural effusion if the patient doesn't improve with hemodialysis. Good to transfer patient out of the ICU to a cardiac floor or remote telemetry bed. Nephrology is following and addressing hemodialysis. We'll continue to follow. Time with Patient: Less than 30
--- NOTE | 2020-03-24 15:50 | P.PN ---
Subjective Progress Note Date: 03/24/20 Temo is a pleasant 44-year-old white male, newer to our practice. He is insulin- dependent diabetic since a young age. He currently takes Levemir approximately 15 units daily along with Humalog to scale. He reports two days ago having increased nausea and vomiting after hemodialysis. He says it became severe and also had some darker blood emesis with vomiting the last time. He came in the emergency room and he found his sugar to be 600. He was found to be in diabetic ketoacidosis with glucose greater than 600 emergency room. He had a slightly elevated troponin at .073. He had an elevated plasma lactic acid level also after insulin drip in the intensive care unit, it is now normal. Staff report he is now off the insulin drip. He has a history of coronary bypass grafting at [facility]. Admission he had an elevated [place] a .077 its increased .090. He has a history of a kidney transplant that failed and has been back on hemodialysis since December. He treats with the [facility] for this. Currently in the intensive care unit he feels much better. He denies any more nausea or vomiting. Hes not had any more hematemesis. The insulin drip is since been discontinued.Is on a rather high dose of Prograf due to his history of kidney transplant. He calls out to the transplant surgeons whether they still should be continued or not. 03/24/2020 Ion gap closed,12. Patient declined his bedtime snack , hypoglycemic this morning .chest ultrasound reporting bilateral pleural effusions greater on the right.receiving hemodialysis today. Reports he has nausea vomiting on a weekly basis with dialysis treatments, commonly occurring with the second treatment whether he's using a clinic locally or on the [place] [facility]. Prograf confirmed by [facility]. Patient reports he is on a waiting list for a kidney transplant at [facility] this July. Vital signs stable, maintaining O2 sats in the 90s on room air. Telemetry sinus rh ythm. Objective - Vital Signs Vital signs: Vital Signs Temp 97.7 F 03/24/20 08:00 Pulse 63 03/24/20 08:00 Resp 18 03/24/20 08:00 BP 135/83 03/24/20 08:00 Pulse Ox 98 03/24/20 08:00 Intake & Output 03/23/20 03/24/20 03/24/20 18:59 06:59 18:59 Intake Total 1490 1040 300 Output Total 0 Balance 1490 1040 300 Weight 88 kg 86.4 kg Intake: IV 590 440 D5-0.45% NaCl with KCl 150 20Meq/l 1,000 ml @ 150 mls/hr IV .Q6H40M [facility] Rx# :[id number] Sodium Chloride 0.9% 1, 440 440 000 ml @ 40 mls/hr IV . Q24H [facility] Rx#:[id number] Intake, IV Titration 150 Amount D5-0.45% NaCl with KCl 150 20Meq/l 1,000 ml @ 150 mls/hr IV .Q6H40M [facility] Rx# :[id number] Oral 750 600 300 Output: Urine 0 Other: # Voids 0 - Exam General: Sitting up in bed, no acute distress HEENT: PERRL. EOMI. Oral mucosa moist. Neck: No adenopathy. No JVD Cardiac: Heart regular in rate and rhythm. No S3. No S4. No clicks, rubs. systolic murmur at RSB.. Large CABG scar on mid chest, permacath left chest wall in place Lungs: Bilateral bases diminished, occasional scattered coarse rhonchi, fine basilar crackles, or wheezing. Abdomen: Soft, minimal mid epigastric tenderness No mass. No organomegaly. Positive Bowel sounds present. Extremes:MINIMAL edema bilateral lower extremities, no clubbing, no cyanosis, positive pulses Skin:.No rash. Neurologic:No lateralizing deficits. CN II - XII grossly intact. - Labs CBC & Chem 7: 03/24/20 04:17 03/24/20 04:17 Labs: Abnormal Lab Results - Last 24 Hours (Table) 03/23/20 03/23/20 03/23/20 Range/Units 02:48 16:57 20:23 RBC (4.30-5.90) m/uL Hgb (13.0-17.5) gm/dL Hct (39.0-53.0) % MCHC (31.0-37.0) g/dL Sodium (137-145) mmol/L Chloride (98-107) mmol/L BUN (9-20) mg/dL Creatinine (0.66-1.25) mg/dL Glucose (74-99) mg/dL POC Glucose (mg/dL) 208 H 105 H (75-99) mg/dL Hemoglobin A1c 7.1 H (4.0-6.0) % 03/24/20 03/24/20 03/24/20 Range/Units 04:17 04:17 06:35 RBC 3.87 L (4.30-5.90) m/uL Hgb 11.3 L (13.0-17.5) gm/dL Hct 36.8 L (39.0-53.0) % MCHC 30.6 L (31.0-37.0) g/dL Sodium 132 L (137-145) mmol/L Chloride 97 L (98-107) mmol/L BUN 36 H (9-20) mg/dL Creatinine 7.92 H* (0.66-1.25) mg/dL Glucose 39 L* (74-99) mg/dL POC Glucose (mg/dL) 46 L (75-99) mg/dL Hemoglobin A1c (4.0-6.0) % 03/24/20 03/24/20 03/24/20 Range/Units 06:52 08:40 11:49 RBC (4.30-5.90) m/uL Hgb (13.0-17.5) gm/dL Hct (39.0-53.0) % MCHC (31.0-37.0) g/dL Sodium (137-145) mmol/L Chloride (98-107) mmol/L BUN (9-20) mg/dL Creatinine (0.66-1.25) mg/dL Glucose (74-99) mg/dL POC Glucose (mg/dL) 124 H 167 H 67 L (75-99) mg/dL Hemoglobin A1c (4.0-6.0) % Microbiology - Last 24 Hours (Table) 03/22/20 14:38 Blood Culture - Preliminary Blood No Growth after 24 hours Assessment and Plan Assessment: (1) acute DKA (diabetic ketoacidoses), resolved Current Visit: Yes Status: Acute Code(s): E11.10 - TYPE 2 DIABETES MELLITUS WITH KETOACIDOSIS WITHOUT COMA SNOMED Code(s): 024517262 (2) End stage chronic kidney disease Current Visit: Yes Status: Acute Code(s): N18.6 - END STAGE RENAL DISEASE SNOMED Code(s): 73158454 (3) Dependence on hemodialysis Current Visit: Yes Status: Acute Code(s): Z99.2 - DEPENDENCE ON RENAL D IALYSIS SNOMED Code(s): 715521199 (4) H/O four vessel coronary artery bypass graft, recent Current Visit: Yes Status: Acute Code(s): Z95.1 - PRESENCE OF AORTOCORONARY BYPASS GRAFT SNOMED Code(s): 142021289 (5) CAD (coronary artery disease) Current Visit: Yes Status: Acute Code(s): I25.10 - ATHSCL HEART DISEASE OF [place] CORONARY ARTERY W/O ANG PCTRS SNOMED Code(s): 75766707 (6) Insulin dependent diabetes mellitus Current Visit: Yes Status: Acute Code(s): EGC7475 - SNOMED Code(s): 04590988 (7) Vomiting with nausea, not intractable Current Visit: Yes Status: Acute Code(s): R11.2 - NAUSEA WITH VOMITING, UNSPECIFIED SNOMED Code(s): 97346189 (8) Kidney transplant failure Current Visit: Yes Status: Acute Code(s): T86.12 - KIDNEY TRANSPLANT FAILURE SNOMED Code(s): 903526791 (9) Kidney transplant recipient Current Visit: Yes Status: Acute Code(s): Z94.0 - KIDNEY TRANSPLANT STATUS SNOMED Code(s): 780981049 (10) Hypertension Current Visit: Yes Status: Acute Code(s): I10 - ESSENTIAL (PRIMARY) HYPERTENSION SNOMED Code(s): 06312350 (11) Hyperlipidemia Current Visit: Yes Status: Acute Code(s): E78.5 - HYPERLIPIDEMIA, UNSPECIFIED SNOMED Code(s): 70457578 (12) Elevated troponin Current Visit: Yes Status: Acute Code(s): R79.89 - OTHER SPECIFIED ABNORMAL FINDINGS OF BLOOD CHEMISTRY SNOMED Code(s): 647161961 (13) Bloody vomitus Current Visit: Yes Status: Acute Code(s): K92.0 - HEMATEMESIS SNOMED Code(s): 5262227 (14) Pleural effusion, right Current Visit: Yes Status: Acute Code(s): J90 - PLEURAL EFFUSION, NOT ELSEWHERE CLASSIFIED SNOMED Code(s): 11102947 (15) Pleural effusion, left Current Visit: Yes Status: Acute Code(s): J90 - PLEURAL EFFUSION, NOT ELSEWHERE CLASSIFIED SNOMED Code(s): 44909968 Plan: Continue on current medication regime ,monitoring and symptomatic treatment. Maintain IV fluid hydration. Hemodialysis today as per nephrology. Potential thoracentesis being discussed by pulmonary regarding right pleural effusion if no improvement with hemodialysis. Parameters placed on scheduled pre-meal insulin. Cleared for transfer out of ICU to [facility] with telemetry. Close monitoring of Accu-Cheks. Echo pending. Statin added to med regime Discharge planning in progress for tomorrow. The impression and plan of care has been dictated as directed. : I performed a history and examination of this patient, discussed the same with the dictator. I agree with the dictator's note ,documented as a scribe. Any additional findings or plans will be noted.
[2020-03-24 16:15] LABS: Glucose,Whole Blood 232 mg/dL (75-99)
[2020-03-24 16:34] LABS: Glucose,Whole Blood 286 mg/dL (75-99)
[2020-03-24] MEDS: SODIUM CHLORIDE 0.9% 1,000 ML IV SCH (18:40)
[2020-03-24 20:23] LABS: Glucose,Whole Blood 215 mg/dL (75-99)
--- NOTE | 2020-03-24 20:23 | PN ---
PROGRESS NOTE Patient is seen for followup for end-stage renal disease. He is currently seen on hemodialysis, tolerating his treatment well. Blood pressure is 135 to 150 mmHg. Patient is awake, alert, oriented x3. EXAMINATION OF THE HEART: S1 and S2. EXAMINATION OF LUNGS: Decreased breath sounds at bases. ABDOMEN: Soft, non-tender. Examination of lower extremities shows trace edema. METAL BUMPER exam is grossly intact. Labs show sodium 132, potassium 4.6, BUN 36, serum creatinine 7.92, calcium 8.4, magnesium 2.1, hemoglobin 11.3, white cell count 5.8. ASSESSMENT: 1. End-stage renal disease, currently maintained on hemodialysis that recently started about two weeks ago on a Tuesday, Tuesday, Tuesday schedule. 2. Volume overload. We will try for about 3 L today and plan for extra treatment again tomorrow. 3. Status post living-unrelated renal allograft at [facility] in 2011, listed for another transplant. Currently maintained on Prograf. However, patient does not have any significant urine output. Prograf level was ordered and it is currently pending. 4. Type 1 diabetes. 5. Hypertension, partly volume-sensitive. PLAN: Hemodialysis today and then repeat again in a.m. Follow up on Prograf levels. Once blood pressure is improved with fluid removal, I will decrease the clonidine. MMODL / IJN: [id number] /
[2020-03-24] MEDS ORDERED: INSULIN DETEMIR (LEVEMIR) 100 UNIT/ML SYR SQ SCH (21:00)
[2020-03-24] MEDS ORDERED: ATORVASTATIN 80 MG TAB PO SCH (21:00)
[2020-03-25 02:31] LABS: Glucose,Whole Blood 96 mg/dL (75-99)
[2020-03-25 04:12] LABS: Glucose,Whole Blood 60 mg/dL (75-99)
[2020-03-25 04:31] LABS: Glucose,Whole Blood 88 mg/dL (75-99)
[2020-03-25 05:29] LABS: Calcium 8.2 mg/dL (8.4-10.2); Potassium 4.9 mmol/L (3.5-5.1)
[2020-03-25 06:03] LABS: Basophils # (A) 0.1 k/uL (0-0.2); Basophils % (A) 1 %; Eosinophils # (A) 0.2 k/uL (0-0.7); Eosinophils % (A) 5 %; HCT 40.1 % (39.0-53.0); HGB 12.1 gm/dL (13.0-17.5); Hypochromasia Marked; Lymphocytes # (A) 1.8 k/uL (1.0-4.8); Lymphocytes % (A) 37 %; MCHC 30.2 g/dL (31.0-37.0); MCV 95.9 fL (80.0-100.0); Mean Platelet Volume 8.9; Monocytes # (A) 0.5 k/uL (0-1.0); Monocytes % (A) 10 %; Neutrophils # (A) 2.2 k/uL (1.3-7.7); Neutrophils % (A) 45 %; Platelet Count 204 k/uL (150-450); RBC 4.18 m/uL (4.30-5.90); RDW 15.4 % (11.5-15.5); WBC 4.9 k/uL (3.8-10.6)
--- NOTE | 2020-03-25 07:29 | XR ---
EXAMINATION TYPE: XR chest 1V portable DATE OF EXAM: 03/25/2020 CLINICAL HISTORY: Difficulty breathing progress study. TECHNIQUE: Single AP portable upright view of the chest is obtained. COMPARISON: Chest x-ray from 3 days earlier and March 17, 2019. Ultrasound chest 2 days ago. FINDINGS: Stable large bore left sided dialysis catheter. Overlying sternal wires redemonstrated. Pe rsistent tiny left along with moderate size right pleural effusion and associated right basilar atele ctasis and/or infiltrate. Persistent cardiomegaly and central vascular congestion. Right-sided rotati on noted on current study. Multilevel spurring in thoracic spine again seen. IMPRESSION: Overall stable findings, cardiomegaly with central vascular congestion and with tiny le ft pleural effusion and moderate-sized right pleural effusion with associated right basilar atelectas is and/or infiltrate all redemonstrated. No significant change from most recent x-ray. Correlate for a persistent fluid overload state and/or CHF exacerbation.
[2020-03-25] MEDS: INSULIN ASPART (NovoLOG) 100 UNIT/ML VIAL SQ SCH ×7 (08:33→15:09)
[2020-03-25] MEDS: hydrALAZINE HCL 25 MG TAB PO SCH (08:42)
[2020-03-25] MEDS: METOPROLOL SUCCINATE (ER) 25 MG TAB.ER.24H PO SCH (08:43)
[2020-03-25] MEDS: amLODIPine 5 MG TAB PO SCH (08:43)
[2020-03-25] MEDS: cloNIDine HCL 0.2 MG TAB PO SCH (08:43)
[2020-03-25] MEDS: ASPIRIN 325 MG TAB PO SCH (08:43)
[2020-03-25] MEDS: TACROLIMUS 1 MG CAP PO SCH (08:43)
[2020-03-25 08:46] VITALS: BP 138/99; PULSE 57; RESP 14; TEMP 97.8
[2020-03-25 11:47] LABS: Glucose,Whole Blood 109 mg/dL (75-99)
--- NOTE | 2020-03-25 12:57 | ECHOF ---
Referral Reason:cp MEASUREMENTS -------- HEIGHT: 167.6 cm WEIGHT: 86.2 kg BP: 136/88 RVIDd: 3.1 cm (< 3.3) IVSd: 1.6 cm (0.6 - 1.1) LVIDd: 4.1 cm (3.9 - 5.3) LVPWd: 1.3 cm (0.6 - 1.1) IVSs: 1.7 cm LVIDs: 3.4 cm LVPWs: 1.6 cm LA Diam: 3.5 cm (2.7 - 3.8) LAESV Index (A-L): 32.71 ml/m Ao Diam: 3.2 cm (2.0 - 3.7) AV Cusp: 1.7 cm (1.5 - 2.6) MV EXCURSION: 16.703 mm (> 18.000) MV EF SLOPE: 59 mm/s (70 - 150) EPSS: 0.8 cm MV E [place]: 1.33 m/s MV DecT: 217 ms MV A [place]: 0.91 m/s MV E/A Ratio: 1.47 AV maxP.08 mmHg AV meanP.80 mmHg RAP: 5.00 mmHg RVSP: 30.53 mmHg FINDINGS -------- Resting bradycardia (HR<60bpm). This was a technically adequate study. CABG DEC 2019 The left ventricular size is normal. There is moderate concentric left ventricular hypertrophy. O verall left ventricular systolic function is low-normal with, an EF between 50 - 55 %. There is lois dence of paradoxical septal motion. The right ventricle is normal in size. LA is midly dilated 29-33ml/m2. The right atrium is normal in size. Interatrial and interventricular septum intact. There is mild aortic valve sclerosis. Peak/mean gradient across the Aortic Valve is 15.08mmHg / 7.8 0mmHg. The mitral valve leaflets are mildly thickened. Mild mitral annular calcification present. There is trace to mild mitral regurgitation. Mild tricuspid regurgitation present. Right ventricular systolic pressure is normal at < 35 mmHg. There is no pulmonic regurgitation present. The aortic root size is normal. Normal inferior vena cava with normal inspiratory collapse consistent with estimated right atrial pre ssure of 5 mmHg. There is no pericardial effusion. CONCLUSIONS -------- 1. Resting bradycardia (HR<60bpm). 2. This was a technically adequate study. 3. CABG DEC 2019 4. The left ventricular size is normal. 5. There is moderate concentric left ventricular hypertrophy. 6. Overall left ventricular systolic function is low-normal with, an EF between 50 - 55 %. 7. There is evidence of paradoxical septal motion. 8. The right ventricle is normal in size. 9. LA is midly dilated 29-33ml/m2. 10. The right atrium is normal in size. 11. Interatrial and interventricular septum intact. 12. There is mild aortic valve sclerosis. 13. Peak/mean gradient across the Aortic Valve is 15.08mmHg / 7.80mmHg. 14. The mitral valve leaflets are mildly thickened. 15. Mild mitral annular calcification present. 16. There is trace to mild mitral regurgitation. 17. Mild tricuspid regurgitation present. 18. Right ventricular systolic pressure is normal at < 35 mmHg. 19. There is no pulmonic regurgitation present. 20. The aortic root size is normal. 21. Normal inferior vena cava with normal inspiratory collapse consistent with estimated right atrial pressure of 5 mmHg. 22. There is no pericardial effusion. HAIR OR BEAUTY SALON ASSISTANT: Jessica Lopez RDCS
--- NOTE | 2020-03-25 12:58 | PN ---
PROGRESS NOTE A 44-year-old gentleman with end-stage renal disease on hemodialysis, CAD status post CABG, hypertension, is admitted to hospital with atypical chest pain. This morning he is doing well and is free of symptoms. PHYSICAL EXAM: Comfortable at rest. Vital signs are stable. Chest exam reveals good air entry bilaterally. Heart exam reveals first and second heart sounds. No gallop. Exam of extremities did not reveal any edema. LABS: Show a hemoglobin of 12.1, potassium is 4.9 creatinine is 6. ASSESSMENT: 1. Atypical chest pain. 2. Coronary artery disease, status post coronary artery bypass grafting. 3. End-stage renal disease on hemodialysis. PLAN: Patient is doing well. He is ready to be discharged home. I still do not have an echo report in the system. MMODL / IJN: [id number] /
--- NOTE | 2020-03-25 13:29 | P.PN ---
Subjective Progress Note Date: 03/25/20 Principal diagnosis: Acute diabetic ketoacidosis This is a 44-year-old male patient, was undergone a recent coronary bypass surgery and [facility] who also has type 1 diabetes mellitus with chronic complications of diabetes mellitus including nephropathy resulting into renal failure. 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 The patient is being dialyzed through a permacath in the left IJ. The patient does not have a fistula autograph at this point in time. Mother the patient is also interested in another transportation and he is currently being investigated for [facility]. He is currently on tacrolimus 7 mg on a daily basis. He has hypertension as and other comorbid condition. He denies having any CAD or congestion heart failure. The patient was having emesis yesterday and since he was started on hemodialysis, he was having episodic emesis specially after completing a dialysis session. Yesterday, his emesis was quite extensive and he was found to have elevated blood sugars. No abdominal pain. No shortness of breath. No chest pain. He did vomit dark brownish material. Denies having any bright red blood per rectum or melanotic stool. The patient has no altered mentation. He was complaining of generalized weakness. He came in to the [facility] where he was found to have anion gap metabolic acidosis with positive ketones. His BUN was 20 with a creatinine of 5.7. Serum bicarbonate was down to 12. Blood sugar was 579. He was treated with an insulin drip and his anion gap is closed. His mentation is fully back to normal. He is awake and alert and following commands and answering questions appropriately. No fever. No chills. No active GI complaints at this point in time. The patient is currently in intensive care unit. Patient was reevaluated today on 03/24/20, patient presented with DKA, and he is now feeling much better. Patient is on chronic hemodialysis for chronic kidney disease, and he had a previous history of kidney transplant. His on iron gap has closed, patient is feeling better, he is in sinus rhythm, hemodynamically stable, he is on room air with O2 saturation of 96%. He had an episode of hypoglycemia today, and that responded to D50. Presently no cough no wheezing no shortness of breath, patient is concerned that he always develops episodes of vomiting after hemodialysis. And I recommended that he discusses this with the english and reading instructor when he rounds on him today. Electrolytes are normal his anion gap is 12. CBC is relatively normal BUN is 36 creatinine is 7.92. Ultrasound of the chest yesterday showed good sized right-sided pleural effusion, hence considering the patient is undergoing hemodialysis, will wait before deciding on thoracentesis. Reevaluated today on 03/25/20, patient is presently receiving hemodialysis. Doing well, he had some shortness of breath earlier today before dialysis. Patient was made aware of his right-sided pleural effusion, and apparently this is a chronic effusion, and he had before were in according the patient responded well to hemodialysis. And I'm hoping this will resolve again without having to perform thoracentesis. Not to mention that the patient is not in any form of respiratory distress at this point. CBC is relatively normal basic metabolic profile is normal BUN today is 29 creatinine is 6.04. Chest x-ray continues to show cardiomegaly and findings of fluid overload with right-sided pleural effusion. Objective - Vital Signs Vital signs: Vital Signs Temp 97.8 F 03/25/20 07:00 Pulse 57 L 03/25/20 08:00 Resp 14 03/25/20 08:00 BP 138/99 03/25/20 07:00 Pulse Ox 97 03/25/20 07:00 Intake & Output 03/24/20 03/25/20 03/25/20 18:59 06:59 18:59 Intake Total 300 440 Output Total 4500 0 0 Balance -4200 440 0 Intake: IV 440 Sodium Chloride 0.9% 1, 440 000 ml @ 40 mls/hr IV . Q24H [facility] Rx#:[id number] Oral 300 Output: Urine 0 0 Hemodialysis 4500 Other: # Voids 0 0 - Exam General: Revealed a very pleasant 44-year-old white male in no distress. HEENT: PERRL. EOMI. Oral mucosa moist. Neck: No adenopathy. No JVD Cardiac: Heart regular in rate and rhythm. No S3. No S4. No clicks, rubs. Lungs: Symmetrical chest expansion, slightly diminished breath sounds at the right base. Left-sided clear. Abdomen: Soft, minimal mid epigastric tenderness No mass. No organomegaly. Positive Bowel sounds present. Extremes: Trace of bipedal edema, no clubbing, no cyanosis. Skin:.No rash. Neurologic:No lateralizing deficits. CN II - XII grossly intact. Psychiatric: Normal mood, affect and normal mental status examination. - Labs CBC & Chem 7: 03/25/20 04:41 03/25/20 04:41 Labs: Abnormal Lab Results - Last 24 Hours (Table) 03/24/20 03/24/20 03/24/20 Range/Units 16:13 16:34 20:22 RBC (4.30-5.90) m/uL Hgb (13.0-17.5) gm/dL MCHC (31.0-37.0) g/dL Sodium (137-145) mmol/L BUN (9-20) mg/dL Creatinine (0.66-1.25) mg/dL POC Glucose (mg/dL) 232 H 286 H 215 H (75-99) mg/dL Calcium (8.4-10.2) mg/dL 03/25/20 03/25/20 03/25/20 Range/Units 04:10 04:41 04:41 RBC 4.18 L (4.30-5.90) m/uL Hgb 12.1 L (13.0-17.5) gm/dL MCHC 30.2 L (31.0-37.0) g/dL Sodium 134 L (137-145) mmol/L BUN 29 H (9-20) mg/dL Creatinine 6.04 H (0.66-1.25) mg/dL POC Glucose (mg/dL) 60 L (75-99) mg/dL Calcium 8.2 L (8.4-10.2) mg/dL 03/25/20 Range/Units 11:44 RBC (4.30-5.90) m/uL Hgb (13.0-17.5) gm/dL MCHC (31.0-37.0) g/dL Sodium (137-145) mmol/L BUN (9-20) mg/dL Creatinine (0.66-1.25) mg/dL POC Glucose (mg/dL) 109 H (75-99) mg/dL Calcium (8.4-10.2) mg/dL Microbiology - Last 24 Hours (Table) 03/22/20 14:38 Blood Culture - Preliminary Blood No Growth after 48 hours Assessment and Plan Assessment: Impression: Acute diabetic ketoacidosis, resolved Type 1 diabetes. Coronary artery disease and previous/recent CABG. Right pleural effusion most likely secondary to fluid overload secondary to renal failure. Chronic, will likely improve with hemodialysis. No need for thoracentesis at this time. Dialysis dependent renal failure Benign essential hypertension History of kidney transplant. Diabetic gastroparesis Anemia of chronic disease Recommendation: Continue present supportive care measures. Continue hemodialysis. Insulin as per scale and long-acting insulin already started. Resume home meds including Prograf. Continue to monitor blood pressure. Consider discharge planning and follow-up on outpatient basis. If discharged home today, patient will be seen in our office within 2-3 weeks. Time with Patient: Less than 30
[2020-03-25 14:19] LABS: Glucose,Whole Blood 333 mg/dL (75-99)
--- NOTE | 2020-03-25 14:56 | P.DS ---
Providers Date of admission: 03/22/20 15:57 Expected date of discharge: 03/25/20 Attending physician: Bhanu Carranza Consults: 03/22/20 15:46 Consult Physician Routine Consulting Provider: Ana Cristina Mesa Consult Reason/Comments: Dialysis patient, DKA pt Do you want consulting provider notified?: Yes Consult Physician Stat Consulting Provider: Cm Aguilar Consult Reason/Comments: DKA, Upper GI bleed, CP after vomiting-within 90 day open heart Do you want consulting provider notified?: Yes Consult Physician Urgent Consulting Provider: Buddy Rebollar Consult Reason/Comments: CP after vomiting--DKA patient (recent open heart at [facility]) Do you want consulting provider notified?: Yes Primary care physician: [facility] Course: Final Diagnoses: (1) acute DKA (diabetic ketoacidoses), resolved Current Visit: Yes Status: Acute Code(s): E11.10 - TYPE 2 DIABETES MELLITUS WITH KETOACIDOSIS WITHOUT COMA SNOMED Code(s): 717366198 (2) End stage chronic kidney disease Current Visit: Yes Status: Acute Code(s): N18.6 - END STAGE RENAL DISEASE SNOMED Code(s): 50014164 (3) Dependence on hemodialysis Current Visit: Yes Status: Acute Code(s): Z99.2 - DEPENDENCE ON RENAL DIALYSIS SNOMED Code(s): 351986738 (4) H/O four vessel coronary artery bypass graft, recent Current Visit: Yes Status: Acute Code(s): Z95.1 - PRESENCE OF AORTOCORONARY BYPASS GRAFT SNOMED Code(s): 389099267 (5) CAD (coronary artery disease) Current Visit: Yes Status: Acute Code(s): I25.10 - ATHSCL HEART DISEASE OF [place] CORONARY ARTERY W/O ANG PCTRS SNOMED Code(s): 33973545 (6) Insulin dependent diabetes mellitus Current Visit: Yes Status: Acute Code(s): NNC5179 - SNOMED Code(s): 68302328 (7) Vomiting with nausea, not intractable Current Visit: Yes Status: Acute Code(s): R11.2 - NAUSEA WITH VOMITING, UNSPECIFIED SNOMED Code(s): 17453128 (8) Kidney transplant failure Current Visit: Yes Status: Acute Code(s): T86.12 - KIDNEY TRANSPLANT FAILURE SNOMED Code(s): 026280663 (9) Kidney transplant recipient Current Visit: Yes Status: Acute Code(s): Z94.0 - KIDNEY TRANSPLANT STATUS SNOMED Code(s): 703118044 (10) Hypertension Current Visit: Yes Status: Acute Code(s): I10 - ESSENTIAL (PRIMARY) HYPERTENSION SNOMED Code(s): 19214079 (11) Hyperlipidemia Current Visit: Yes Status: Acute Code(s): E78.5 - HYPERLIPIDEMIA, UNSPECIFIED SNOMED Code(s): 60946271 (12) Elevated troponin Current Visit: Yes Status: Acute Code(s): R79.89 - OTHER SPECIFIED ABNORMAL FINDINGS OF BLOOD CHEMISTRY SNOMED Code(s): 824414804 (13) Bloody vomitus Current Visit: Yes Status: Acute Code(s): K92.0 - HEMATEMESIS SNOMED Code(s): 5652913 (14) Pleural effusion, right Current Visit: Yes Status: Acute Code(s): J90 - PLEURAL EFFUSION, NOT ELSEWHERE CLASSIFIED SNOMED Code(s): 37881309 (15) Pleural effusion, left Current Visit: Yes Status: Acute Code(s): J90 - PLEURAL EFFUSION, NOT ELSEWHERE CLASSIFIED SNOMED Code(s): 71948839 Hospital course:(1) acute DKA (diabetic ketoacidoses), resolved Current Visit: Yes Status: Acute Code(s): E11.10 - TYPE 2 DIABETES MELLITUS WITH KETOACIDOSIS WITHOUT COMA SNOMED Code(s): 984442892 (2) End stage chronic kidney disease Current Visit: Yes Status: Acute Code(s): N18.6 - END STAGE RENAL DISEASE SNOMED Code(s): 74190518 (3) Dependence on hemodialysis Current Visit: Yes Status: Acute Code(s): Z99.2 - DEPENDENCE ON RENAL DIALYSIS SNOMED Code(s): 468446470 (4) H/O four vessel coronary artery bypass graft, recent Current Visit: Yes Status: Acute Code(s): Z95.1 - PRESENCE OF AORTOCORONARY BYPASS GRAFT SNOMED Code(s): 653230482 (5) CAD (coronary artery disease) Current Visit: Yes Status: Acute Code(s): I25.10 - ATHSCL HEART DISEASE OF [place] CORONARY ARTERY W/O ANG PCTRS SNOMED Code(s): 84154921 (6) Insulin dependent diabetes mellitus Current Visit: Yes Status: Acute Code(s): JWZ2140 - SNOMED Code(s): 57717597 (7) Vomiting with nausea, not intractable Current Visit: Yes Status: Acute Code(s): R11.2 - NAUSEA WITH VOMITING, UNSPECIFIED SNOMED Code(s): 66794072 (8) Kidney transplant failure Current Visit: Yes Status: Acute Code(s): T86.12 - KIDNEY TRANSPLANT FAILURE SNOMED Code(s): 009810084 (9) Kidney transplant recipient Current Visit: Yes Status: Acute Code(s): Z94.0 - KIDNEY TRANSPLANT STATUS SNOMED Code(s): 141921748 (10) Hypertension Current Visit: Yes Status: Acute Code(s): I10 - ESSENTIAL (PRIMARY) HYPERTENSION SNOMED Code(s): 66373020 (11) Hyperlipidemia Current Visit: Yes Status: Acute Code(s): E78.5 - HYPERLIPIDEMIA, UNSPECIFIED SNOMED Code(s): 05620741 (12) Elevated troponin Current Visit: Yes Status: Acute Code(s): R79.89 - OTHER SPECIFIED ABNORMAL FINDINGS OF BLOOD CHEMISTRY SNOMED Code(s): 533999361 (13) Bloody vomitus Current Visit: Yes Status: Acute Code(s): K92.0 - HEMATEMESIS SNOMED Code(s): 9302242 (14) Pleural effusion, right Current Visit: Yes Status: Acute Code(s): J90 - PLEURAL EFFUSION, NOT ELSEWHERE CLASSIFIED SNOMED Code(s): 52799038 (15) Pleural effusion, left Current Visit: Yes Status: Acute Code(s): J90 - PLEURAL EFFUSION, NOT ELSEWHERE CLASSIFIED SNOMED Code(s): 47229606 Hospital course:Temo is a pleasant 44-year-old white male, newer to our practice. He is insulin-dependent diabetic since a young age. He currently takes Levemir approximately 15 units daily along with Humalog to scale. He reports two days ago having increased nausea and vomiting after hemodialysis. He says it became severe and also had some darker blood emesis with vomiting the last time. He came in the emergency room and he found his sugar to be 600. He was found to be in diabetic ketoacidosis with glucose greater than 600 emergency room. He had a slightly elevated troponin at .073. He had an elevated plasma lactic acid level also after insulin drip in the intensive care unit, it is now normal. Staff report he is now off the insulin drip. He has a history of coronary bypass grafting at [facility]. Admission he had an elevated [place] a .077 its increased .090. He has a history of a kidney transplant that failed and has been back on hemodialysis since December. He treats with the [facility] for this. Currently in the intensive care unit he feels much better. He denies any more nausea or vomiting. Hes not had any more hematemesis. The insulin drip is since been discontinued.Is on a rather high dose of Prograf due to his history of kidney transplant. He calls out to the transplant surgeons whether they still should be continued or not. 03/24/2020 Ion gap closed,12. Patient declined his bedtime snack , hypoglycemic this morning .chest ultrasound reporting bilateral pleural effusions greater on the right.receiving hemodialysis today. Reports he has nausea vomiting on a weekly basis with dialysis treatments, commonly occurring with the second treatment whether he's using a clinic locally or on the [place] [facility]. Prograf confirmed by [facility]. Patient reports he is on a waiting list for a kidney transplant at [facility] this July. Vital signs stable, maintaining O2 sats in the 90s on room air. Telemetry sinus rhythm. Hemodialysis again today. Significant clinical improvement. Cleared by all consults for discharge. Patient will be discharged home in a stable condition pending follow-up Accu-Chek. The impression and plan of care has been dictated as directed. : I performed a history and examination of this patient, discussed the same with the dictator. I agree with the dictator's note ,documented as a scribe. Any additional findings or plans will be noted. Patient Condition at Discharge: Stable Plan - Discharge Summary Discharge Rx Participant: Yes New Discharge Prescriptions: New Aspirin 325 mg PO DAILY tab Atorvastatin [Lipitor] 80 mg PO HS #30 tab Tacrolimus [Prograf] 7 mg PO BID cap Continue amLODIPine BESYLATE 5 mg PO DAILY cloNIDine HCL [Catapres] 0.6 mg PO TID Metoprolol Succinate [Toprol XL] 25 mg PO DAILY Insulin Aspart [NovoLOG Flexpen] 12 units SQ AC-TID #0 Changed Insulin Detemir (Levemir) [Levemir] 15 unit SQ HS #0 hydrALAZINE HCL 25 mg PO QID #120 tab Discharge Medication List amLODIPine BESYLATE 5 mg PO DAILY 02/02/19 [History] Metoprolol Succinate [Toprol XL] 25 mg PO DAILY 03/22/20 [History] cloNIDine HCL [Catapres] 0.6 mg PO TID 03/22/20 [History] Aspirin 325 mg PO DAILY tab 03/25/20 [Rx] Atorvastatin [Lipitor] 80 mg PO HS #30 tab 03/25/20 [Rx] Insulin Aspart [NovoLOG Flexpen] 12 units SQ AC-TID #0 03/25/20 [Rx] Insulin Detemir (Levemir) [Levemir] 15 unit SQ HS #0 03/25/20 [Rx] Tacrolimus [Prograf] 7 mg PO BID cap 03/25/20 [Rx] hydrALAZINE HCL 25 mg PO QID #120 tab 03/25/20 [Rx] Follow up Appointment(s)/Referral(s): Bhanu Carranza Jr, [Primary Care Provider] - 03/27/20 Activity/Diet/Wound Care/Special Instructions: Pending follow-up Accu-Chek .Confirm cardiology follow-up appointment prior to discharge
--- NOTE | 2020-03-25 15:15 | XR ---
EXAMINATION TYPE: XR chest 1V DATE OF EXAM: 03/25/2020 COMPARISON: 08/26/2020 INDICATION: CHF post dialysis TECHNIQUE: Single frontal view of the chest is obtained. FINDINGS: The heart size is enlarged. The pulmonary vasculature is normal. There is a moderate right pleural effusion. Double-lumen catheter is present on the right atrium. IMPRESSION: 1. Moderate right pleural effusion. 2. Diminished volume overload and/or CHF.
--- NOTE | 2020-03-25 15:18 | PN ---
PROGRESS NOTE Patient is seen for followup for end-stage renal disease. He is currently seen on dialysis, tolerating his treatment well. The patient had 2 L of ultrafiltration, which he tolerated very well. His blood pressure is currently not low; in fact, it was slightly on the higher side. This morning blood pressure noted to be at 138/99, heart rate 57 per minute. He is afebrile. EXAMINATION OF THE HEART: S1 and S2. EXAMINATION OF LUNGS: Decreased breath sounds at bases, particularly the right side. ABDOMEN: Soft, non-tender. Mildly distended. Examination of lower extremities shows no evidence of edema. COLOR BLENDER exam is grossly intact. Labs show hemoglobin 12.1, sodium 134, potassium 4.9, BUN 29, creatinine 6.04. ASSESSMENT: 1. End-stage renal disease, started on hemodialysis, maintained on a Tuesday, Tuesday, Tuesday schedule as outpatient. 2. Volume overload, status post extra treatment today. Repeat chest x-ray continues to show central vascular congestion with pleural effusion as well. It is not significantly changed from admission. Patient was supposed to have a chest x-ray after his hemodialysis treatment today. 3. Hypertension, partly volume-sensitive, better controlled. 4. Status post living-unrelated renal transplant at [facility] in 2011 with failed graft. Currently maintained on Prograf. Level was on the higher side at 10.6. 5. Diabetic ketoacidosis on admission, now resolved. PLAN: Patient will be dialyzed again tomorrow. He wants to go home, and he could be discharged with plans to follow up as outpatient with hemodialysis tomorrow. However, if he stays, he will be dialyzed here in the hospital. I will also decrease the dose of Prograf to 5 mg twice a day, given the higher level. MMODL / IJN: [id number] /
[2020-03-25] MEDS ORDERED: TACROLIMUS 1 MG CAP PO SCH (21:00)
== END 2020-03-25 16:38 | disposition left against medical advice (07) | DRG 637 ==
LOC: EC 13:01 → 2SICU 15:57
PROVIDERS: ADMIT Family Medicine; ATTEND Family Medicine
PROC: 5A1D70Z Performance of Urinary Filtration, Intermittent, Less than 6 Hours Per Day (ICD-10-PCS; principal; 2020-03-24)
DX: E10.10 Type 1 diabetes mellitus with ketoacidosis without coma (principal); N18.6 End stage renal disease; I12.0 Hypertensive chronic kidney disease with stage 5 chronic kidney disease or end stage renal disease; J90 Pleural effusion, not elsewhere classified; K92.0 Hematemesis; I51.7 Cardiomegaly; E78.5 Hyperlipidemia, unspecified; E10.22 Type 1 diabetes mellitus with diabetic chronic kidney disease; D63.8 Anemia in other chronic diseases classified elsewhere; D45 Polycythemia vera; E10.319 Type 1 diabetes mellitus with unspecified diabetic retinopathy without macular edema; E10.43 Type 1 diabetes mellitus with diabetic autonomic (poly)neuropathy; F17.200 Nicotine dependence, unspecified, uncomplicated; I25.10 Atherosclerotic heart disease of native coronary artery without angina pectoris; Z11.59 Encounter for screening for other viral diseases; E87.70 Fluid overload, unspecified; K31.84 Gastroparesis; Z79.899 Other long term (current) drug therapy; Z79.4 Long term (current) use of insulin; Z88.8 Allergy status to other drugs, medicaments and biological substances; Z98.890 Other specified postprocedural states; Z99.2 Dependence on renal dialysis; Z95.1 Presence of aortocoronary bypass graft
CPT/HCPCS: 36415; 71045; 71046; 76604; 80048; 80051; 80053; 80061; 80197; 82009; 82140; 82150; 82271; 82565; 82947; 83036; 83605; 83690; 83735; 84100; 84439; 84443; 84484; 84520; 85025; 85027; 85610; 85730; 87040; 87635; 90935; 93005; 93306; 96361; 96365; 96372; 96375; 99291

== ENCOUNTER → 2020-06-12 | Outpatient (CLI) | payer MEDICARE, OTHER ==
--- NOTE | 2020-06-12 14:38 | XR ---
EXAMINATION TYPE: XR chest 2V DATE OF EXAM: 06/12/2020 COMPARISON: 03/25/2020 TECHNIQUE: PA and lateral views submitted. HISTORY: TB respiratory screening FINDINGS: A postoperative change with a dialysis catheter. There is a large area of consolidation and pleural e ffusion on the right and there is an interstitial pattern. No pneumothorax. IMPRESSION: 1. Right-sided consolidation and pleural effusion. No significant interval change from prior exam. Lo culated effusion in the differential diagnosis recommend ultrasound the right chest. 2. Correlate for mild venous congestion.
== END | disposition home or self-care (01) ==
LOC: RADXRMAIN 14:17
PROVIDERS: ATTEND Internal Medicine Nephrology
DX: J90 Pleural effusion, not elsewhere classified (principal); J18.1 Lobar pneumonia, unspecified organism
CPT/HCPCS: 71046